=== PATIENT | male | born 1935 | race Caucasian/White ===

== ENCOUNTER 2017-06-28 22:21 | Inpatient (IN) | payer OTHER ==
[~2017-06-28] VITALS: Ht 170.2 cm; Wt 96.7 kg
--- NOTE | 2017-06-28 22:52 | EKG ---
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
[2017-06-28 22:56] LABS: BASO % 0 % (0-3); EOS % 2 % (0-3); HEMATOCRIT 46.1 % (39.0-53.0); HEMOGLOBIN 15.3 g/dL (13.0-17.5); LYMPH # 3.8 x10^3/uL (1.0-4.8); LYMPH % 39 % (24-48); MEAN CORPUSCULAR HEMOGLOBIN 31 pg (25-35); MEAN CORPUSCULAR HGB CONC 33 g/dL (31-37); MEAN CORPUSCULAR VOLUME 94 fL (79-100); MONO % 11 % (0-9); NEUT % 48 % (31-73); PLATELET COUNT 194 x10^3/uL (140-400); RED BLOOD COUNT 4.89 x10^6/uL (4.30-5.70); RED CELL DISTRIBUTION WIDTH 13.4 % (11.5-14.5); WHITE BLOOD COUNT 9.9 x10^3/uL (4.0-11.0)
--- NOTE | 2017-06-28 22:57 | PHYS DOC ---
Past Medical History Past Medical History: A-Fib, High Cholesterol, Hypertension, Kidney Stone Past Surgical History: Other Additional Past Surgical Histo: R LEG Alcohol Use: None Drug Use: None Adult General Chief Complaint Chief Complaint: CHEST PAIN HPI HPI Patient is a 81 year old male who presents with complaint of chest pain that started approximately 3 hours prior to arrival. Patient states that the symptoms came on while eating. Patient states that the pain is in the middle of his chest and currently rates pain as 7 out of 10. Patient states that does radiate to his left shoulder. Patient denies any recent illness. Patient has history of atrial fibrillation currently on warfarin therapy. Patient has had nausea but denies vomiting. Patient hasn't noticed any shortness of breath but does appear to be visibly labored in his respirations. Patient has not had any recent stress testing or echocardiogram. Review of Systems Review of Systems Constitutional: Denies fever or chills [] Eyes: Denies change in visual acuity, redness, or eye pain [] HENT: Denies nasal congestion or sore throat [] Respiratory: Denies cough or shortness of breath [] Cardiovascular: Chest pain[] GI: Nausea, denies abdominal pain, vomiting, bloody stools or diarrhea [] : Denies dysuria or hematuria [] Musculoskeletal: Denies back pain or joint pain [] Integument: Denies rash or skin lesions [] Neurologic: Denies headache, focal weakness or sensory changes [] All other systems were reviewed and found to be within normal limits, except as documented in this note. Current Medications Current Medications Current Medications Medications (Trade) Dose Ordered Sig/Malaika Start Time Stop Time Status Last Admin Dose Admin Aspirin (Children'S Aspirin) 324 mg 1X ONCE 06/28/17 23:15 06/28/17 23:16 DC 06/28/17 23:07 324 MG Nitroglycerin (Nitrostat) 0.4 mg PRN Q5MIN PRN 06/28/17 23:00 06/29/17 22:59 06/28/17 23:09 0.4 MG Sodium Chloride 1,000 ml @ 75 mls/hr [id number] 06/28/17 23:00 06/29/17 12:19 06/28/17 23:09 75 MLS/HR Allergies Allergies Allergies Coded Allergies Type Severity Reaction Last Updated Verified No Known Drug Allergies 06/28/17 No Physical Exam Physical Exam Constitutional: Alert, afebrile, appears in moderate discomfort. [] HENT: Normocephalic, atraumatic, bilateral external ears normal, oropharynx moist, no oral exudates, nose normal. [] Eyes: PERRLA, EOMI, conjunctiva normal, no discharge. [] Neck: Normal range of motion, no tenderness, supple, no stridor. [] Cardiovascular: Normal rate, irregular rhythm, no murmur [] Lungs & Thorax: Bilateral breath sounds clear to auscultation [] Abdomen: Bowel sounds normal, soft, no tenderness, no masses, no pulsatile masses. [] Skin: Warm, dry, no erythema, no rash. [] Back: No tenderness, no CVA tenderness. [] Extremities: No tenderness, no cyanosis, no clubbing, ROM intact, trace pedal edema. [] Neurologic: Alert and oriented X 3, normal motor function, normal sensory function, no focal deficits noted. [] Current Patient Data Vital Signs Vital Signs Date Time Temp Pulse Resp B/P (MAP) Pulse Ox O2 Delivery O2 Flow Rate FiO2 06/28/17 23:09 75 131/69 06/28/17 22:23 98.0 22 96 Room Air 98.0 Lab Values Laboratory Tests Test 06/28/17 22:35 White Blood Count 9.9 x10^3/uL (4.0-11.0) Red Blood Count 4.89 x10^6/uL (4.30-5.70) Hemoglobin 15.3 g/dL (13.0-17.5) Hematocrit 46.1 % (39.0-53.0) Mean Corpuscular Volume 94 fL (79-100) Mean Corpuscular Hemoglobin 31 pg (25-35) Mean Corpuscular Hemoglobin Concent 33 g/dL (31-37) Red Cell Distribution Width 13.4 % (11.5-14.5) Platelet Count 194 x10^3/uL (140-400) Neutrophils (%) (Auto) 48 % (31-73) Lymphocytes (%) (Auto) 39 % (24-48) Monocytes (%) (Auto) 11 % (0-9) H Eosinophils (%) (Auto) 2 % (0-3) Basophils (%) (Auto) 0 % (0-3) Neutrophils # (Auto) 4.7 x10^3uL (1.8-7.7) Lymphocytes # (Auto) 3.8 x10^3/uL (1.0-4.8) Monocytes # (Auto) 1.1 x10^3/uL (0.0-1.1) Eosinophils # (Auto) 0.2 x10^3/uL (0.0-0.7) Basophils # (Auto) 0.0 x10^3/uL (0.0-0.2) Prothrombin Time 28.7 SEC (11.7-14.0) H Prothrombin Time INR 2.9 (0.8-1.1) H Sodium Level 143 mmol/L (136-145) Potassium Level 3.7 mmol/L (3.5-5.1) Chloride Level 106 mmol/L (98-107) Carbon Dioxide Level 27 mmol/L (21-32) Anion Gap 10 (6-14) Blood Urea Nitrogen 17 mg/dL (8-26) Creatinine 1.1 mg/dL (0.7-1.3) Estimated GFR (Cockcroft-Gault) 64.1 BUN/Creatinine Ratio 15 (6-20) Glucose Level 150 mg/dL (70-99) H Calcium Level 8.4 mg/dL (8.5-10.1) L Magnesium Level 2.2 mg/dL (1.8-2.4) Total Bilirubin 1.3 mg/dL (0.2-1.0) H Aspartate Amino Transferase (AST) 44 U/L (15-37) H Alanine Aminotransferase (ALT) 35 U/L (16-63) Alkaline Phosphatase 66 U/L (46-116) Troponin I Quantitative < 0.017 ng/mL (0.000-0.055) Total Protein 7.0 g/dL (6.4-8.2) Albumin 3.8 g/dL (3.4-5.0) Albumin/Globulin Ratio 1.2 (1.0-1.7) Lipase 330 U/L (73-393) Laboratory Tests 06/28/17 22:35 Laboratory Tests 06/28/17 22:35 EKG EKG Interpreted by me: Heart rate 94, atrial fibrillation, leftward axis, no acute ST/T-wave abnormalities present[] Radiology/Procedures Radiology/Procedures One view AP chest x-ray interpreted by me: No infiltrates, no effusions, cardiomegaly present[] Course & Med Decision Making Course & Med Decision Making Pertinent Labs and Imaging studies reviewed. (See chart for details) The patient's HEART score is 4. Initial troponin negative. Due to patient being moderate risk for acute cardiac event, the patient will be admitted the hospital for rule out of myocardial ischemia. Patient admitted to Dr. Hernandez. As patient was noted to have mild abnormalities in LFTs, and abdominal ultrasound will be ordered for the morning for further evaluation. Dragon Disclaimer Dragon Disclaimer This electronic medical record was generated, in whole or in part, using a voice recognition dictation system. Departure Departure Impression: Primary Impression: Chest pain Additional Impression: Atrial fibrillation Disposition: ADMITTED INPATIENT Admitting Physician: Raffy Hernandez Condition: GUARDED Referrals: BETHANY WALL (PCP) Problem Qualifiers Primary Impression: Chest pain Chest pain type: unspecified Qualified Codes: R07.9 - Chest pain, unspecified Additional Impression: Atrial fibrillation Atrial fibrillation type: chronic Qualified Codes: I48.2 - Chronic atrial fibrillation KOKO FRANK MD Jun 28, 2017 22:57
[2017-06-28] MEDS ORDERED: IV NORMAL SALINE 1000ML BAG 1,000 ML IV SCH ×2 (23:00→23:45)
[2017-06-28 23:05] LABS: INR 2.9 (0.8-1.1); PROTHROMBIN TIME PATIENT 28.7 SEC (11.7-14.0)
[2017-06-28] MEDS: NITROGLYCERIN SUBLINGUAL 0.4 MG BOTTLE OF 25. SL PRN (23:09)
[2017-06-28] MEDS ORDERED: ASPIRIN CHEWABLE 81 MG TABLET. PO ONE (23:15)
[2017-06-28 23:16] LABS: CALCIUM 8.4 mg/dL (8.5-10.1); CREATININE 1.1 mg/dL (0.7-1.3); GFR 64.1; POTASSIUM 3.7 mmol/L (3.5-5.1)
[2017-06-28 23:20] LABS: ALBUMIN 3.8 g/dL (3.4-5.0); ALBUMIN/GLOBULIN RATIO 1.2 (1.0-1.7); MAGNESIUM 2.2 mg/dL (1.8-2.4); TOTAL BILIRUBIN 1.3 mg/dL (0.2-1.0)
[2017-06-28 23:23] LABS: CKMB MASS 5.3 ng/mL (0.0-3.6)
[2017-06-28 23:29] LABS: BILIRUBIN,URINE NEGATIVE (NEG); GLUCOSE,URINE NEGATIVE (NEG); NITRITE,URINE NEGATIVE (NEG); PH,URINE 5.5; PROTEIN,URINE NEGATIVE (NEG-TRACE)
[2017-06-28 23:33] LABS: BACTERIA,URINE 0 /HPF (0-FEW); RBC,URINE 0 /HPF (0-2); SQUAMOUS EPITHELIAL CELL,UR OCC /LPF; WBC,URINE OCC /HPF (0-4)
[2017-06-28] MEDS ORDERED: ACETAMINOPHEN 325 MG TABLET. PO PRN (23:45)
[2017-06-28] MEDS ORDERED: ONDANSETRON PF 4 MG/2 ML VIAL. IV PRN (23:45)
[2017-06-28] MEDS ORDERED: fentaNYL PF VIAL 100 MCG/2 ML VIAL IV PRN (23:45)
[2017-06-29] VITALS (7 sets, daily range): BP systolic 101–114; BP diastolic 58–69
[2017-06-29] MEDS ORDERED: METO-239 PO (03:44)
[2017-06-29] MEDS ORDERED: IBUP-1060 PO (03:44)
[2017-06-29] MEDS ORDERED: LOVA40TA2 PO (03:44)
[2017-06-29] MEDS ORDERED: WARF5TAB7 PO (03:44)
[2017-06-29] MEDS: NITROGLYCERIN SUBLINGUAL 0.4 MG BOTTLE OF 25. SL PRN (04:11)
[2017-06-29 05:28] LABS: BASO % 0 % (0-3); EOS % 1 % (0-3); HEMATOCRIT 42.6 % (39.0-53.0); HEMOGLOBIN 14.1 g/dL (13.0-17.5); LYMPH # 2.6 x10^3/uL (1.0-4.8); LYMPH % 23 % (24-48); MEAN CORPUSCULAR HEMOGLOBIN 31 pg (25-35); MEAN CORPUSCULAR HGB CONC 33 g/dL (31-37); MEAN CORPUSCULAR VOLUME 95 fL (79-100); MONO % 12 % (0-9); NEUT % 63 % (31-73); PLATELET COUNT 177 x10^3/uL (140-400); RED BLOOD COUNT 4.51 x10^6/uL (4.30-5.70); RED CELL DISTRIBUTION WIDTH 13.4 % (11.5-14.5)
[2017-06-29 05:39] LABS: CALCIUM 7.8 mg/dL (8.5-10.1); CREATININE 0.9 mg/dL (0.7-1.3); GFR 80.8; POTASSIUM 3.8 mmol/L (3.5-5.1)
--- NOTE | 2017-06-29 07:54 | RAD ---
EXAM: CHEST 1 VIEW History: Chest pain COMPARISON: None available. TECHNIQUE: Single portable radiograph of the chest FINDINGS: The cardiac silhouette is unremarkable. The lungs are clear bilaterally. The costophrenic sulci are clear and well demarcated. IMPRESSION: No radiographic evidence of an acute cardiopulmonary process.
--- NOTE | 2017-06-29 10:07 | RAD ---
Examination: Ultrasound abdomen limited History: History of elevated bilirubin, abdominal pain Comparison: None available Findings: The visualized pancreas grossly appears unremarkable. The gallbladder wall thickness measures 2.2 mm. No evidence of gallstones identified. The common bile duct measures 3.2 mm in diameter. Small calcifications identified in the right lobe of the liver likely granulomas. Probable minimal increased echogenicity identified in the liver. The right kidney measures 11.7 cm in length. 1 cm cystic structure identified in the right kidney likely a cyst. Impression: 1. No evidence of gallstones. 2. Probable minimal increased echogenicity identified in the liver could be hepatic steatosis.
--- NOTE | 2017-06-29 12:23 | PDOC2 ---
CONSULT Date of Consult Date of Consult DATE: 06/29/17 TIME: 12:23 Reason for Consult Reason for Consult: chest pain Referring Physician Referring Physician: Dr. Carroll Identification/Chief Complaint Chief Complaint Chest pain Problems: Source Source: Chart review, Patient History of Present Illness Reason for Visit: 81-year-old male with history of permanent atrial fibrillation on long-term anticoagulation who usually follows up with Dr. Obrien at [facility] presented with left-sided chest pain that he described as pressure-like sensation radiating to left arm and shoulder, A/10 severity. He denied any diaphoresis, shortness of breath, palpitations or syncope. Past Medical History Past Medical History Permanent atrial fibrillation Hypertension Hyperlipidemia Family History Family History Positive for coronary artery disease Social History No ALCOHOL: none Drugs: None Current Problem List Problem List Problems Medical Problems: (1) Atrial fibrillation Status: Acute (2) Chest pain Status: Acute Current Medications Current Medications Current Medications Aspirin (Children'S Aspirin) 324 mg 1X ONCE PO Last administered on 23:07; Start 06/28/17 at 23:15; Stop 06/28/17 at 23:16; Status DC Nitroglycerin (Nitrostat) 0.4 mg PRN Q5MIN PRN SL CP RATING > 1/10 Last administered on 06/29/17 04:11; Start 06/28/17 at 23:00; Stop 06/29/17 at 22 :59 Sodium Chloride 1,000 ml @ 75 mls/hr [id number] IV Last administered on 23:09; Start 06/28/17 at 23:00; Stop 06/29/17 at 12:19; Status DC Ondansetron HCl (Zofran) 4 mg PRN Q8HRS PRN IV NAUSEA/VOMITING; Start at 23:45; Stop 06/29/17 at 23:44 Fentanyl Citrate (Fentanyl 2ml Vial) 50 mcg PRN Q2HR PRN IV SEVERE PAIN; Start 06/28/17 at 23:45; Stop 06/29/17 at 23:44 Sodium Chloride 1,000 ml @ 75 mls/hr [id number] IV ; Start 06/28/17 at 23:45; Stop 06/29/17 at 23:44 Acetaminophen (Tylenol) 650 mg PRN Q4HRS PRN PO FEVER; Start 06/28/17 at 23:45 ; Stop 06/29/17 at 23:44 Active Scripts Active Reported Ibuprofen 800 Mg Tablet 800 Mg PO PRN Q6HRS PRN Metoprolol Succinate ( Xl ) (Metoprolol Succinate) 25 Mg Tab.er.24h 2 Tab PO DAILY Lovastatin 40 Mg Tablet 1 Tab PO DAILY Warfarin Sodium 5 Mg Tablet 1 Tab PO DAILY Allergies Allergies: Coded Allergies: No Known Drug Allergies (Unverified , 06/28/17) ROS PSYCHOLOGICAL ROS: No: Hallucinations Eyes: No Loss of vision HEENT: No: Epistaxis Respiratory: No: Hemoptysis, Shortness of breath Cardiovascular: yes Chest Pain Gastrointestinal: No Vomiting, No Diarrhea Genitourinary: No Hematuria Neurological: No Memory Loss, No Seizures Skin: No Rash Physical Exam General: Alert, Oriented X3 HEENT: Atraumatic, PERRLA Lungs: Clear to auscultation Heart: Other (heart rate is irregular) Abdomen: Soft, No tenderness Extremities: No edema Psych/Mental Status: Mood NL Vitals VITALS Vital Signs Date Time Temp Pulse Resp B/P (MAP) Pulse Ox O2 Delivery O2 Flow Rate FiO2 06/29/17 11:00 97.7 62 18 114/63 (80) 98 Nasal Cannula 1.0 97.7 Labs Labs Laboratory Tests Test 06/28/17 22:35 06/28/17 23:22 06/29/17 02:00 06/29/17 03:30 White Blood Count 9.9 x10^3/uL (4.0-11.0) 11.0 x10^3/uL (4.0-11.0) Red Blood Count 4.89 x10^6/uL (4.30-5.70) 4.51 x10^6/uL (4.30-5.70) Hemoglobin 15.3 g/dL (13.0-17.5) 14.1 g/dL (13.0-17.5) Hematocrit 46.1 % (39.0-53.0) 42.6 % (39.0-53.0) Mean Corpuscular Volume 94 fL (79-100) 95 fL (79-100) Mean Corpuscular Hemoglobin 31 pg (25-35) 31 pg (25-35) Mean Corpuscular Hemoglobin Concent 33 g/dL (31-37) 33 g/dL (31-37) Red Cell Distribution Width 13.4 % (11.5-14.5) 13.4 % (11.5-14.5) Platelet Count 194 x10^3/uL (140-400) 177 x10^3/uL (140-400) Neutrophils (%) (Auto) 48 % (31-73) 63 % (31-73) Lymphocytes (%) (Auto) 39 % (24-48) 23 % (24-48) Monocytes (%) (Auto) 11 % (0-9) 12 % (0-9) Eosinophils (%) (Auto) 2 % (0-3) 1 % (0-3) Basophils (%) (Auto) 0 % (0-3) 0 % (0-3) Neutrophils # (Auto) 4.7 x10^3uL (1.8-7.7) 7.0 x10^3uL (1.8-7.7) Lymphocytes # (Auto) 3.8 x10^3/uL (1.0-4.8) 2.6 x10^3/uL (1.0-4.8) Monocytes # (Auto) 1.1 x10^3/uL (0.0-1.1) 1.4 x10^3/uL (0.0-1.1) Eosinophils # (Auto) 0.2 x10^3/uL (0.0-0.7) 0.1 x10^3/uL (0.0-0.7) Basophils # (Auto) 0.0 x10^3/uL (0.0-0.2) 0.0 x10^3/uL (0.0-0.2) Prothrombin Time 28.7 SEC (11.7-14.0) Prothromb Time International Ratio 2.9 (0.8-1.1) Sodium Level 143 mmol/L (136-145) 143 mmol/L (136-145) Potassium Level 3.7 mmol/L (3.5-5.1) 3.8 mmol/L (3.5-5.1) Chloride Level 106 mmol/L (98-107) 107 mmol/L (98-107) Carbon Dioxide Level 27 mmol/L (21-32) 24 mmol/L (21-32) Anion Gap 10 (6-14) 12 (6-14) Blood Urea Nitrogen 17 mg/dL (8-26) 16 mg/dL (8-26) Creatinine 1.1 mg/dL (0.7-1.3) 0.9 mg/dL (0.7-1.3) Estimated GFR (Cockcroft-Gault) 64.1 80.8 BUN/Creatinine Ratio 15 (6-20) Glucose Level 150 mg/dL (70-99) 124 mg/dL (70-99) Calcium Level 8.4 mg/dL (8.5-10.1) 7.8 mg/dL (8.5-10.1) Magnesium Level 2.2 mg/dL (1.8-2.4) Total Bilirubin 1.3 mg/dL (0.2-1.0) Aspartate Amino Transf (AST/SGOT) 44 U/L (15-37) Alanine Aminotransferase (ALT/SGPT) 35 U/L (16-63) Alkaline Phosphatase 66 U/L (46-116) Creatine Kinase 566 U/L (39-308) Creatine Kinase MB (Mass) 5.3 ng/mL (0.0-3.6) Creatine Kinase MB Relative Index 0.9 % (0-4) Troponin I Quantitative < 0.017 ng/mL (0.000-0.055) < 0.017 ng/mL (0.000-0.055) MF-Xyc-V-Type Natriuretic Peptide 747 pg/mL (0-449) Total Protein 7.0 g/dL (6.4-8.2) Albumin 3.8 g/dL (3.4-5.0) Albumin/Globulin Ratio 1.2 (1.0-1.7) Lipase 330 U/L (73-393) Urine Collection Type Unknown Urine Color Yellow Urine Clarity Cloudy Urine pH 5.5 Urine Specific [place] 1.025 Urine Protein Negative mg/dL (NEG-TRACE) Urine Glucose (UA) Negative mg/dL (NEG) Urine Ketones (Stick) Negative mg/dL (NEG) Urine Blood Negative (NEG) Urine Nitrite Negative (NEG) Urine Bilirubin Negative (NEG) Urine Urobilinogen Dipstick 1.0 mg/dL (0.2 mg/dL) Urine Leukocyte Esterase Negative (NEG) Urine RBC 0 /HPF (0-2) Urine WBC Occ /HPF (0-4) Urine Squamous Epithelial Cells Occ /LPF Urine Bacteria 0 /HPF (0-FEW) Urine Mucus Mod /LPF Test 06/29/17 05:00 Troponin I Quantitative 0.017 ng/mL (0.000-0.055) Laboratory Tests Test 06/28/17 22:35 06/28/17 23:22 06/29/17 02:00 06/29/17 03:30 White Blood Count 9.9 x10^3/uL (4.0-11.0) 11.0 x10^3/uL (4.0-11.0) Red Blood Count 4.89 x10^6/uL (4.30-5.70) 4.51 x10^6/uL (4.30-5.70) Hemoglobin 15.3 g/dL (13.0-17.5) 14.1 g/dL (13.0-17.5) Hematocrit 46.1 % (39.0-53.0) 42.6 % (39.0-53.0) Mean Corpuscular Volume 94 fL (79-100) 95 fL (79-100) Mean Corpuscular Hemoglobin 31 pg (25-35) 31 pg (25-35) Mean Corpuscular Hemoglobin Concent 33 g/dL (31-37) 33 g/dL (31-37) Red Cell Distribution Width 13.4 % (11.5-14.5) 13.4 % (11.5-14.5) Platelet Count 194 x10^3/uL (140-400) 177 x10^3/uL (140-400) Neutrophils (%) (Auto) 48 % (31-73) 63 % (31-73) Lymphocytes (%) (Auto) 39 % (24-48) 23 % (24-48) Monocytes (%) (Auto) 11 % (0-9) 12 % (0-9) Eosinophils (%) (Auto) 2 % (0-3) 1 % (0-3) Basophils (%) (Auto) 0 % (0-3) 0 % (0-3) Neutrophils # (Auto) 4.7 x10^3uL (1.8-7.7) 7.0 x10^3uL (1.8-7.7) Lymphocytes # (Auto) 3.8 x10^3/uL (1.0-4.8) 2.6 x10^3/uL (1.0-4.8) Monocytes # (Auto) 1.1 x10^3/uL (0.0-1.1) 1.4 x10^3/uL (0.0-1.1) Eosinophils # (Auto) 0.2 x10^3/uL (0.0-0.7) 0.1 x10^3/uL (0.0-0.7) Basophils # (Auto) 0.0 x10^3/uL (0.0-0.2) 0.0 x10^3/uL (0.0-0.2) Prothrombin Time 28.7 SEC (11.7-14.0) Prothromb Time International Ratio 2.9 (0.8-1.1) Sodium Level 143 mmol/L (136-145) 143 mmol/L (136-145) Potassium Level 3.7 mmol/L (3.5-5.1) 3.8 mmol/L (3.5-5.1) Chloride Level 106 mmol/L (98-107) 107 mmol/L (98-107) Carbon Dioxide Level 27 mmol/L (21-32) 24 mmol/L (21-32) Anion Gap 10 (6-14) 12 (6-14) Blood Urea Nitrogen 17 mg/dL (8-26) 16 mg/dL (8-26) Creatinine 1.1 mg/dL (0.7-1.3) 0.9 mg/dL (0.7-1.3) Estimated GFR (Cockcroft-Gault) 64.1 80.8 BUN/Creatinine Ratio 15 (6-20) Glucose Level 150 mg/dL (70-99) 124 mg/dL (70-99) Calcium Level 8.4 mg/dL (8.5-10.1) 7.8 mg/dL (8.5-10.1) Magnesium Level 2.2 mg/dL (1.8-2.4) Total Bilirubin 1.3 mg/dL (0.2-1.0) Aspartate Amino Transf (AST/SGOT) 44 U/L (15-37) Alanine Aminotransferase (ALT/SGPT) 35 U/L (16-63) Alkaline Phosphatase 66 U/L (46-116) Creatine Kinase 566 U/L (39-308) Creatine Kinase MB (Mass) 5.3 ng/mL (0.0-3.6) Creatine Kinase MB Relative Index 0.9 % (0-4) Troponin I Quantitative < 0.017 ng/mL (0.000-0.055) < 0.017 ng/mL (0.000-0.055) LR-Xgz-S-Type Natriuretic Peptide 747 pg/mL (0-449) Total Protein 7.0 g/dL (6.4-8.2) Albumin 3.8 g/dL (3.4-5.0) Albumin/Globulin Ratio 1.2 (1.0-1.7) Lipase 330 U/L (73-393) Urine Collection Type Unknown Urine Color Yellow Urine Clarity Cloudy Urine pH 5.5 Urine Specific [place] 1.025 Urine Protein Negative mg/dL (NEG-TRACE) Urine Glucose (UA) Negative mg/dL (NEG) Urine Ketones (Stick) Negative mg/dL (NEG) Urine Blood Negative (NEG) Urine Nitrite Negative (NEG) Urine Bilirubin Negative (NEG) Urine Urobilinogen Dipstick 1.0 mg/dL (0.2 mg/dL) Urine Leukocyte Esterase Negative (NEG) Urine RBC 0 /HPF (0-2) Urine WBC Occ /HPF (0-4) Urine Squamous Epithelial Cells Occ /LPF Urine Bacteria 0 /HPF (0-FEW) Urine Mucus Mod /LPF Test 06/29/17 05:00 Troponin I Quantitative 0.017 ng/mL (0.000-0.055) Assessment/Plan Assessment/Plan 1. Chest pain with typical features concerning for unstable angina. Total CK and CK-MB elevated but troponin level normal. EKG without acute changes. He has multiple cardiac vascular risk factors. We will proceed with cardiac catheterization and possible angioplasty. Risks and benefits explained and he is agreeable. 2. Hypertension: Well-controlled 3. Hyperlipidemia: Continue statin therapy 4. Permanent atrial fibrillation: Rate controlled. Continue current medications including warfarin. We will obtain records of 2-D echo etc. 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 Thank you for your consultation. DAQUAN JAVIER MD Jun 29, 2017 12:23
--- NOTE | 2017-06-29 12:28 | PDOC1 ---
History and Physical Date of Admission Date of Admission DATE: 06/29/17 TIME: 12:28 Source Source: Chart review, Patient History of Present Illness History of Present Illness Mr. Villa, is a 81 year old male admit from ER, acute chest pain, admit late overnight, the pain came on while eating, thought to be indegestion but worsened. . Patient states that the pain is in the middle of his chest was 7/10, now improved. . Patient has history of atrial fibrillation currently on warfarin therapy, and he wanted to be sure he got his dose today. . Patient has had nausea but denies vomiting. Past Medical History Cardiovascular: AFIB, HTN Pulmonary: No pertinent hx GI: No pertinent hx Heme/Onc: No pertinent hx Musculoskeletal: low back pain Rheumatologic: No pertinent hx Past Surgical History Past Surgical History: No pertinent history Family History Family History: Hypertension Social History Smoke: No ALCOHOL: rare Drugs: None Current Problem List Problem List Problems Medical Problems: (1) Atrial fibrillation Status: Acute (2) Chest pain Status: Acute Problems: Current Medications Current Medications Current Medications Aspirin (Children'S Aspirin) 324 mg 1X ONCE PO Last administered on 23:07; Start 06/28/17 at 23:15; Stop 06/28/17 at 23:16; Status DC Nitroglycerin (Nitrostat) 0.4 mg PRN Q5MIN PRN SL CP RATING > 1/10 Last administered on 06/29/17 04:11; Start 06/28/17 at 23:00; Stop 06/29/17 at 22 :59 Sodium Chloride 1,000 ml @ 75 mls/hr [id number] IV Last administered on 23:09; Start 06/28/17 at 23:00; Stop 06/29/17 at 12:19; Status DC Ondansetron HCl (Zofran) 4 mg PRN Q8HRS PRN IV NAUSEA/VOMITING; Start at 23:45; Stop 06/29/17 at 23:44 Fentanyl Citrate (Fentanyl 2ml Vial) 50 mcg PRN Q2HR PRN IV SEVERE PAIN; Start 06/28/17 at 23:45; Stop 06/29/17 at 23:44 Sodium Chloride 1,000 ml @ 75 mls/hr [id number] IV ; Start 06/28/17 at 23:45; Stop 06/29/17 at 23:44 Acetaminophen (Tylenol) 650 mg PRN Q4HRS PRN PO FEVER; Start 06/28/17 at 23:45 ; Stop 06/29/17 at 23:44 Active Scripts Active Reported Ibuprofen 800 Mg Tablet 800 Mg PO PRN Q6HRS PRN Metoprolol Succinate ( Xl ) (Metoprolol Succinate) 25 Mg Tab.er.24h 2 Tab PO DAILY Lovastatin 40 Mg Tablet 1 Tab PO DAILY Warfarin Sodium 5 Mg Tablet 1 Tab PO DAILY Allergies Allergies: Coded Allergies: No Known Drug Allergies (Unverified , 06/28/17) ROS General: No: Chills, Night Sweats, Fatigue, Malaise, Appetite, Other PSYCHOLOGICAL ROS: No: Anxiety, Behavioral Disorder, Concentration difficultie , Decreased libido, Depression, Disorientation, Hallucinations, Hostility, Irritablity, Memory difficulties, Mood Swings, Obsessive thoughts, Physical abuse, Sexual abuse, Sleep disturbances, Suicidal ideation, Other Eyes: No Blurry vision, No Decreased vision, No Double vision, No Dry eyes, No Excessive tearing, No Eye Pain, No Itchy Eyes, No Loss of vision, No Photophobia , No Scotomata, No Uses contacts, No Uses glasses, No Other HEENT: YES: Heacaches, No: Hearing change, Nasal congestion, Nasal discharge, Oral lesions, Sinus pain, Sore Throat, Epistaxis, Sneezing, Snoring, Tinnitus, Vertigo, Vocal changes, Other Respiratory: YES: Shortness of breath, No: Cough, Hemoptysis, Orthopnea, Pleuritic Pain, SOB with excertion, Sputum Changes, Stridor, Tachypnea, Wheezing, Other Cardiovascular: yes Chest Pain, No Palpitations, No Orthopnea, No Paroxysmal Noc. Dyspnea, No Edema, No Lt Headedness, No Other Gastrointestinal: Yes Nausea, No Vomiting, No Abdominal Pain, No Diarrhea, No Constipation, No Melena, No Hematochezia, No Other Genitourinary: No Dysuria, No Frequency, No Incontinence, No Hematuria, No Retention, No Discharge, No Urgency, No Pain, No Flank Pain, No Other, No , No , No , No , No , No , No Musculoskeletal: Yes Joint Pain, Yes Joint Stiffness Neurological: No Behavorial Changes, No Bowel/Bladder ControlChng, No Confusion , No Dizziness, No Gait Disturbance, No Headaches, No Impaired Coord/balance, No Memory Loss, No Numbness/Tingling, No Seizures, No Speech Problems, No Tremors, No Visual Changes, No Weakness, No Other Skin: Yes Dry Skin, No Eczema, No Hair Changes, No Lumps, No Mole Changes, No Mottling, No Nail Changes, No Pruritus, No Rash, No Skin Lesion Changes, No Other, No Acne Physical Exam General: Alert, No acute distress HEENT: PERRLA, EOMI, Mucous membr. moist/pink Lungs: Clear to auscultation Heart: no gallops, no murmurs Abdomen: Normal bowel sounds, Soft (obese) Extremities: No clubbing, No cyanosis, Normal pulses Skin: No rashes, No breakdown, No significant lesion Neuro: Sensation intact, Cranial nerves 3-12 NL Psych/Mental Status: Mental status NL, Mood NL Vitals Vitals Vital Signs Date Time Temp Pulse Resp B/P (MAP) Pulse Ox O2 Delivery O2 Flow Rate FiO2 06/29/17 11:00 97.7 62 18 114/63 (80) 98 Nasal Cannula 1.0 97.7 Labs Labs Laboratory Tests Test 06/28/17 22:35 06/28/17 23:22 06/29/17 02:00 06/29/17 03:30 White Blood Count 9.9 x10^3/uL (4.0-11.0) 11.0 x10^3/uL (4.0-11.0) Red Blood Count 4.89 x10^6/uL (4.30-5.70) 4.51 x10^6/uL (4.30-5.70) Hemoglobin 15.3 g/dL (13.0-17.5) 14.1 g/dL (13.0-17.5) Hematocrit 46.1 % (39.0-53.0) 42.6 % (39.0-53.0) Mean Corpuscular Volume 94 fL (79-100) 95 fL (79-100) Mean Corpuscular Hemoglobin 31 pg (25-35) 31 pg (25-35) Mean Corpuscular Hemoglobin Concent 33 g/dL (31-37) 33 g/dL (31-37) Red Cell Distribution Width 13.4 % (11.5-14.5) 13.4 % (11.5-14.5) Platelet Count 194 x10^3/uL (140-400) 177 x10^3/uL (140-400) Neutrophils (%) (Auto) 48 % (31-73) 63 % (31-73) Lymphocytes (%) (Auto) 39 % (24-48) 23 % (24-48) Monocytes (%) (Auto) 11 % (0-9) 12 % (0-9) Eosinophils (%) (Auto) 2 % (0-3) 1 % (0-3) Basophils (%) (Auto) 0 % (0-3) 0 % (0-3) Neutrophils # (Auto) 4.7 x10^3uL (1.8-7.7) 7.0 x10^3uL (1.8-7.7) Lymphocytes # (Auto) 3.8 x10^3/uL (1.0-4.8) 2.6 x10^3/uL (1.0-4.8) Monocytes # (Auto) 1.1 x10^3/uL (0.0-1.1) 1.4 x10^3/uL (0.0-1.1) Eosinophils # (Auto) 0.2 x10^3/uL (0.0-0.7) 0.1 x10^3/uL (0.0-0.7) Basophils # (Auto) 0.0 x10^3/uL (0.0-0.2) 0.0 x10^3/uL (0.0-0.2) Prothrombin Time 28.7 SEC (11.7-14.0) Prothromb Time International Ratio 2.9 (0.8-1.1) Sodium Level 143 mmol/L (136-145) 143 mmol/L (136-145) Potassium Level 3.7 mmol/L (3.5-5.1) 3.8 mmol/L (3.5-5.1) Chloride Level 106 mmol/L (98-107) 107 mmol/L (98-107) Carbon Dioxide Level 27 mmol/L (21-32) 24 mmol/L (21-32) Anion Gap 10 (6-14) 12 (6-14) Blood Urea Nitrogen 17 mg/dL (8-26) 16 mg/dL (8-26) Creatinine 1.1 mg/dL (0.7-1.3) 0.9 mg/dL (0.7-1.3) Estimated GFR (Cockcroft-Gault) 64.1 80.8 BUN/Creatinine Ratio 15 (6-20) Glucose Level 150 mg/dL (70-99) 124 mg/dL (70-99) Calcium Level 8.4 mg/dL (8.5-10.1) 7.8 mg/dL (8.5-10.1) Magnesium Level 2.2 mg/dL (1.8-2.4) Total Bilirubin 1.3 mg/dL (0.2-1.0) Aspartate Amino Transf (AST/SGOT) 44 U/L (15-37) Alanine Aminotransferase (ALT/SGPT) 35 U/L (16-63) Alkaline Phosphatase 66 U/L (46-116) Creatine Kinase 566 U/L (39-308) Creatine Kinase MB (Mass) 5.3 ng/mL (0.0-3.6) Creatine Kinase MB Relative Index 0.9 % (0-4) Troponin I Quantitative < 0.017 ng/mL (0.000-0.055) < 0.017 ng/mL (0.000-0.055) ZM-Joe-O-Type Natriuretic Peptide 747 pg/mL (0-449) Total Protein 7.0 g/dL (6.4-8.2) Albumin 3.8 g/dL (3.4-5.0) Albumin/Globulin Ratio 1.2 (1.0-1.7) Lipase 330 U/L (73-393) Urine Collection Type Unknown Urine Color Yellow Urine Clarity Cloudy Urine pH 5.5 Urine Specific [place] 1.025 Urine Protein Negative mg/dL (NEG-TRACE) Urine Glucose (UA) Negative mg/dL (NEG) Urine Ketones (Stick) Negative mg/dL (NEG) Urine Blood Negative (NEG) Urine Nitrite Negative (NEG) Urine Bilirubin Negative (NEG) Urine Urobilinogen Dipstick 1.0 mg/dL (0.2 mg/dL) Urine Leukocyte Esterase Negative (NEG) Urine RBC 0 /HPF (0-2) Urine WBC Occ /HPF (0-4) Urine Squamous Epithelial Cells Occ /LPF Urine Bacteria 0 /HPF (0-FEW) Urine Mucus Mod /LPF Test 06/29/17 05:00 Troponin I Quantitative 0.017 ng/mL (0.000-0.055) Laboratory Tests Test 06/28/17 22:35 06/28/17 23:22 06/29/17 02:00 06/29/17 03:30 White Blood Count 9.9 x10^3/uL (4.0-11.0) 11.0 x10^3/uL (4.0-11.0) Red Blood Count 4.89 x10^6/uL (4.30-5.70) 4.51 x10^6/uL (4.30-5.70) Hemoglobin 15.3 g/dL (13.0-17.5) 14.1 g/dL (13.0-17.5) Hematocrit 46.1 % (39.0-53.0) 42.6 % (39.0-53.0) Mean Corpuscular Volume 94 fL (79-100) 95 fL (79-100) Mean Corpuscular Hemoglobin 31 pg (25-35) 31 pg (25-35) Mean Corpuscular Hemoglobin Concent 33 g/dL (31-37) 33 g/dL (31-37) Red Cell Distribution Width 13.4 % (11.5-14.5) 13.4 % (11.5-14.5) Platelet Count 194 x10^3/uL (140-400) 177 x10^3/uL (140-400) Neutrophils (%) (Auto) 48 % (31-73) 63 % (31-73) Lymphocytes (%) (Auto) 39 % (24-48) 23 % (24-48) Monocytes (%) (Auto) 11 % (0-9) 12 % (0-9) Eosinophils (%) (Auto) 2 % (0-3) 1 % (0-3) Basophils (%) (Auto) 0 % (0-3) 0 % (0-3) Neutrophils # (Auto) 4.7 x10^3uL (1.8-7.7) 7.0 x10^3uL (1.8-7.7) Lymphocytes # (Auto) 3.8 x10^3/uL (1.0-4.8) 2.6 x10^3/uL (1.0-4.8) Monocytes # (Auto) 1.1 x10^3/uL (0.0-1.1) 1.4 x10^3/uL (0.0-1.1) Eosinophils # (Auto) 0.2 x10^3/uL (0.0-0.7) 0.1 x10^3/uL (0.0-0.7) Basophils # (Auto) 0.0 x10^3/uL (0.0-0.2) 0.0 x10^3/uL (0.0-0.2) Prothrombin Time 28.7 SEC (11.7-14.0) Prothromb Time International Ratio 2.9 (0.8-1.1) Sodium Level 143 mmol/L (136-145) 143 mmol/L (136-145) Potassium Level 3.7 mmol/L (3.5-5.1) 3.8 mmol/L (3.5-5.1) Chloride Level 106 mmol/L (98-107) 107 mmol/L (98-107) Carbon Dioxide Level 27 mmol/L (21-32) 24 mmol/L (21-32) Anion Gap 10 (6-14) 12 (6-14) Blood Urea Nitrogen 17 mg/dL (8-26) 16 mg/dL (8-26) Creatinine 1.1 mg/dL (0.7-1.3) 0.9 mg/dL (0.7-1.3) Estimated GFR (Cockcroft-Gault) 64.1 80.8 BUN/Creatinine Ratio 15 (6-20) Glucose Level 150 mg/dL (70-99) 124 mg/dL (70-99) Calcium Level 8.4 mg/dL (8.5-10.1) 7.8 mg/dL (8.5-10.1) Magnesium Level 2.2 mg/dL (1.8-2.4) Total Bilirubin 1.3 mg/dL (0.2-1.0) Aspartate Amino Transf (AST/SGOT) 44 U/L (15-37) Alanine Aminotransferase (ALT/SGPT) 35 U/L (16-63) Alkaline Phosphatase 66 U/L (46-116) Creatine Kinase 566 U/L (39-308) Creatine Kinase MB (Mass) 5.3 ng/mL (0.0-3.6) Creatine Kinase MB Relative Index 0.9 % (0-4) Troponin I Quantitative < 0.017 ng/mL (0.000-0.055) < 0.017 ng/mL (0.000-0.055) YJ-Jut-Z-Type Natriuretic Peptide 747 pg/mL (0-449) Total Protein 7.0 g/dL (6.4-8.2) Albumin 3.8 g/dL (3.4-5.0) Albumin/Globulin Ratio 1.2 (1.0-1.7) Lipase 330 U/L (73-393) Urine Collection Type Unknown Urine Color Yellow Urine Clarity Cloudy Urine pH 5.5 Urine Specific [place] 1.025 Urine Protein Negative mg/dL (NEG-TRACE) Urine Glucose (UA) Negative mg/dL (NEG) Urine Ketones (Stick) Negative mg/dL (NEG) Urine Blood Negative (NEG) Urine Nitrite Negative (NEG) Urine Bilirubin Negative (NEG) Urine Urobilinogen Dipstick 1.0 mg/dL (0.2 mg/dL) Urine Leukocyte Esterase Negative (NEG) Urine RBC 0 /HPF (0-2) Urine WBC Occ /HPF (0-4) Urine Squamous Epithelial Cells Occ /LPF Urine Bacteria 0 /HPF (0-FEW) Urine Mucus Mod /LPF Test 06/29/17 05:00 Troponin I Quantitative 0.017 ng/mL (0.000-0.055) VTE Prophylaxis Ordered VTE Prophylaxis Devices: Yes VTE Pharmacological Prophylaxi: No Assessment/Plan Assessment/Plan afib, Chest pain, angina r/o ACS admit, CV consult consider stress test or other in AM htn obesity, BMI 33 DIMAS ROWE MD Jun 29, 2017 12:28
[2017-06-29] MEDS: WARFARIN 5 MG TABLET. PO SCH (16:53)
[2017-06-29] MEDS: METOPROLOL SUCC 24HR ER 25 MG TAB.ER.24H. PO SCH (16:54)
[2017-06-29] MEDS: ATORVASTATIN CALCIUM 10 MG TABLET. PO SCH (20:34)
[2017-06-30 03:45] VITALS: BP 123/69
[2017-06-30 04:38] LABS: BASO % 1 % (0-3); EOS % 3 % (0-3); HEMATOCRIT 41.9 % (39.0-53.0); HEMOGLOBIN 14.2 g/dL (13.0-17.5); LYMPH # 2.6 x10^3/uL (1.0-4.8); LYMPH % 40 % (24-48); MEAN CORPUSCULAR HEMOGLOBIN 32 pg (25-35); MEAN CORPUSCULAR HGB CONC 34 g/dL (31-37); MEAN CORPUSCULAR VOLUME 94 fL (79-100); MONO % 13 % (0-9); NEUT % 44 % (31-73); PLATELET COUNT 155 x10^3/uL (140-400); RED BLOOD COUNT 4.44 x10^6/uL (4.30-5.70); RED CELL DISTRIBUTION WIDTH 13.7 % (11.5-14.5); WHITE BLOOD COUNT 6.5 x10^3/uL (4.0-11.0)
[2017-06-30 04:50] LABS: INR 2.8 (0.8-1.1); PROTHROMBIN TIME PATIENT 27.6 SEC (11.7-14.0)
[2017-06-30 05:20] LABS: ALBUMIN 2.9 g/dL (3.4-5.0); ALBUMIN/GLOBULIN RATIO 0.9 (1.0-1.7); CALCIUM 7.7 mg/dL (8.5-10.1); CREATININE 0.9 mg/dL (0.7-1.3); GFR 80.8; POTASSIUM 3.6 mmol/L (3.5-5.1); TOTAL BILIRUBIN 1.9 mg/dL (0.2-1.0); TOTAL PROTEIN 6.3 g/dL (6.4-8.2)
[2017-06-30 07:30] VITALS: BP 126/66
[2017-06-30] MEDS: METOPROLOL SUCC 24HR ER 25 MG TAB.ER.24H. PO SCH (08:04)
[2017-06-30 10:48] VITALS: BP 109/66
--- NOTE | 2017-06-30 13:58 | PDOC ---
PROGRESS NOTES Chief Complaint Chief Complaint Chest pain ASSESSMENT AND PLAN: 1. Chest pain: resolved. cath planned today 2. Afib: rate controlled. continue home meds 3. HTN: well controlled 4. OAC: on warferin; monitor INR 5. Obesity, BMI 33 History of Present Illness History of Present Illness no current CP, SOB or other c/o Vitals Vitals Vital Signs Date Time Temp Pulse Resp B/P (MAP) Pulse Ox O2 Delivery O2 Flow Rate FiO2 06/30/17 10:48 97.3 83 18 109/66 (80) 95 Room Air 97.3 06/30/17 08:00 1.0 Physical Exam General: Alert, No acute distress Heart: Other (heart rate is irregular) Lungs: Clear Abdomen: Normal bowel sounds, Soft (obese) Extremities: No clubbing Skin: No rashes, No breakdown, No significant lesion Labs LABS Laboratory Tests Test 06/30/17 03:15 White Blood Count 6.5 x10^3/uL (4.0-11.0) Red Blood Count 4.44 x10^6/uL (4.30-5.70) Hemoglobin 14.2 g/dL (13.0-17.5) Hematocrit 41.9 % (39.0-53.0) Mean Corpuscular Volume 94 fL (79-100) Mean Corpuscular Hemoglobin 32 pg (25-35) Mean Corpuscular Hemoglobin Concent 34 g/dL (31-37) Red Cell Distribution Width 13.7 % (11.5-14.5) Platelet Count 155 x10^3/uL (140-400) Neutrophils (%) (Auto) 44 % (31-73) Lymphocytes (%) (Auto) 40 % (24-48) Monocytes (%) (Auto) 13 % (0-9) Eosinophils (%) (Auto) 3 % (0-3) Basophils (%) (Auto) 1 % (0-3) Neutrophils # (Auto) 2.9 x10^3uL (1.8-7.7) Lymphocytes # (Auto) 2.6 x10^3/uL (1.0-4.8) Monocytes # (Auto) 0.8 x10^3/uL (0.0-1.1) Eosinophils # (Auto) 0.2 x10^3/uL (0.0-0.7) Basophils # (Auto) 0.0 x10^3/uL (0.0-0.2) Prothrombin Time 27.6 SEC (11.7-14.0) Prothromb Time International Ratio 2.8 (0.8-1.1) Sodium Level 141 mmol/L (136-145) Potassium Level 3.6 mmol/L (3.5-5.1) Chloride Level 107 mmol/L (98-107) Carbon Dioxide Level 25 mmol/L (21-32) Anion Gap 9 (6-14) Blood Urea Nitrogen 13 mg/dL (8-26) Creatinine 0.9 mg/dL (0.7-1.3) Estimated GFR (Cockcroft-Gault) 80.8 BUN/Creatinine Ratio 14 (6-20) Glucose Level 82 mg/dL (70-99) Calcium Level 7.7 mg/dL (8.5-10.1) Total Bilirubin 1.9 mg/dL (0.2-1.0) Aspartate Amino Transf (AST/SGOT) 35 U/L (15-37) Alanine Aminotransferase (ALT/SGPT) 25 U/L (16-63) Alkaline Phosphatase 49 U/L (46-116) Total Protein 6.3 g/dL (6.4-8.2) Albumin 2.9 g/dL (3.4-5.0) Albumin/Globulin Ratio 0.9 (1.0-1.7) CANDI FISH MD Jun 30, 2017 13:58
[2017-06-30] MEDS ORDERED: IOHEXOL 300 MG/ML 100ML VIAL. ONE (15:11)
[2017-06-30] MEDS ORDERED: LIDOCAINE 2% 20 ML VIAL. ONE (15:11)
[2017-06-30] MEDS ORDERED: VERAPAMIL 5 MG/2 ML VIAL. ONE (15:31)
[2017-06-30] MEDS ORDERED: HEPARIN for IV BOLUS 10,000 UNIT/10 ML VIAL. ONE (15:31)
[2017-06-30] MEDS ORDERED: fentaNYL PF VIAL 100 MCG/2 ML VIAL ONE (15:31)
[2017-06-30] MEDS ORDERED: MIDAZOLAM HCL/PF 2 MG/2 ML VIAL. ONE (15:31)
[2017-06-30] MEDS ORDERED: NITROGLYCERIN 200 MCG/2 ML SYRINGE FOR CATH/VASC LAB. ONE (15:32)
[2017-06-30 16:00] VITALS: BP 113/85
[2017-06-30] MEDS: WARFARIN 5 MG TABLET. PO SCH (16:00)
[2017-06-30] MEDS ORDERED: LIDOCAINE 2% 20 ML VIAL. IJ ONE (16:15)
[2017-06-30] MEDS ORDERED: MIDAZOLAM HCL/PF 2 MG/2 ML VIAL. IV ONE (16:15)
[2017-06-30] MEDS ORDERED: NITROGLYCERIN 200 MCG/2 ML SYRINGE FOR CATH/VASC LAB. IART ONE (16:15)
[2017-06-30] MEDS ORDERED: IOHEXOL 300 MG/ML 100ML VIAL. IART ONE (16:15)
[2017-06-30] MEDS ORDERED: HEPARIN for IV BOLUS 10,000 UNIT/10 ML VIAL. IART ONE (16:15)
[2017-06-30] MEDS ORDERED: fentaNYL PF VIAL 100 MCG/2 ML VIAL IV ONE (16:15)
[2017-06-30] MEDS ORDERED: VERAPAMIL 5 MG/2 ML VIAL. IART ONE (16:15)
--- NOTE | 2017-06-30 16:26 | CARD ---
MR#: [id number] Date of Study: 06/30/2017 Ordering Physician: DAQUAN FOSTER, Referring Physician: FRANCISCO MCCOY Tech: RT Geoffrey (R) APPROVED REPORT Technologist: RT Geoffrey (R) Procedure(s) performed: Left heart catheterization, selective coronary angiography and left ventricul ography via right transradial approach Sedation Time: 29 Minutes INDICATION The indication(s) include : unstable angina . PROCEDURE NARRATIVE After explaining the risks, benefits and alternative options, informed consent was obtained from wayne ent. Patient was brought to the cardiac [employer] Driver and right wrist was prepped and draped in the usual fashion after confirming a positive modified Samuel's test. Arterial access was obtained in the righ t radial artery and a 6 [place] sheath was inserted. 6 [place] Brendan catheter was used to perform brad ective angiography of the left and right coronary arteries. 6 [place] pigtail catheter was used to pe rform left ventriculography. Patient tolerated the procedure well. Hemostasis was achieved using TR band. There were no immediate complications. The following findings were noted. FINDINGS 1. Hemodynamics: Left ventricular end-diastolic pressure of 8 mmHg. No pullback gradient across the aortic valve. 2. Left ventriculography: Normal left ventricle systolic function with ejection fraction estimated at 60%. No significant mitral regurgitation seen. 3. Coronary angiography: a. The left main coronary artery arose from the left sinus of Valsalva, gave rise to the left anteri or descending and left circumflex arteries and did not show any significant stenosis. b. The left anterior descending artery showed 20% stenosis involving the proximal segment. c. The left circumflex artery did not show any significant stenosis. d. The right coronary artery was a large and dominant vessel arising from the right sinus of Valsalv a that did not show any significant stenosis. Conclusion 1. No significant coronary artery disease 2. Normal left ventricle systolic function with ejection fraction estimated at 60%. Recommendations Cardiac Risk Reduction Program Signed by : Daquan Foster, Electronically Approved : 06/30/2017 16:26:38
--- NOTE | 2017-06-30 16:43 | CARD ---
MR#: [id number] Date of Study: 06/30/2017 Ordering Physician: DAQUAN FOSTER, Referring Physician: Tommy SAUCEDO: Justin Orozco [facility] APPROVED REPORT EXAM: Two-dimensional and M-mode echocardiogram with Doppler and color Doppler. Other Information Quality : GoodHR: 85bpm INDICATION Atrial Fibrillation 2D DIMENSIONS Left Atrium(2D)4.2 (1.6-4.0cm)IVSd0.9 (0.7-1.1cm) Aortic Root(2D)3.6 (2.0-3.7cm)LVDd5.6 (3.9-5.9cm) LVOT Diameter2.3 (1.8-2.4cm)PWd0.9 (0.7-1.1cm) LVDs3.9 (2.5-4.0cm)FS (%) 30.3 % SV86.3 mlLVEF(%)57.0 (>50%) Aortic Valve AoV Peak Antonio.127.4cm/sAoV VTI25.5cm AO Peak GR.6.5mmHgLVOT Peak Antonio.84.3cm/s AO Mean GR.3mmHgAVA (VMAX)2.67cm2 AI P 1/2 [id number] Mitral Valve MV E Gjcenstq436.0cm/sMV E Peak Gr.52mmHg MV DECEL [id number] A Bctjtjho84.7cm/s E/A Ratio4.8 Pulmonary Valve PV Peak Nvunfxet71.8cm/s Tricuspid Valve TR P. Wxxjuhyj188ve/sRAP [id number] TR Peak Gr.73gkInUYJP28dfVs LEFT VENTRICLE The Left Ventricle is near the borderline of normal size. There is normal left ventricular wall thick ness. The left ventricular systolic function is normal. The ejection fraction is estimated at 55%. Th ere is normal LV segmental wall motion. cannot be assessed due to underlying atrial fibrillation RIGHT VENTRICLE The right ventricle is normal size. The right ventricular systolic function is normal. ATRIA The left atrium is mildly dilated. The right atrium is moderately dilated. The interatrial septum is intact with no evidence for an atrial septal defect or patent foramen ovale as noted on 2-D or Dopple r imaging. AORTIC VALVE The aortic valve is calcified but opens well. Doppler and Color Flow revealed trace to mild aortic re gurgitation. There is no significant aortic valvular stenosis. There is no aortic valvular vegetation . MITRAL VALVE The mitral valve is thickened but opens well. There is no evidence of mitral valve prolapse. There is no mitral valve stenosis. Doppler and Color-flow revealed mild mitral regurgitation. TRICUSPID VALVE The tricuspid valve is normal in structure and function. Doppler and Color Flow revealed mild to mode rate tricuspid regurgitation. Doppler and Color Flow revealed mild pulmonary hypertension. There is n o tricuspid valve prolapse or vegetation. There is no tricuspid valve stenosis. PULMONIC VALVE The pulmonic valve is mildly thickened. Doppler and Color Flow revealed moderate to severe pulmonic v alvular regurgitation. There is no pulmonic valvular stenosis. GREAT VESSELS The aortic root is normal in size. The IVC is at the upper limit of normal in size and collapses >50% with inspiration. PERICARDIAL EFFUSION There is no pleural effusion. There is no evidence of significant pericardial effusion. Critical Notification Critical Value: No <Conclusion> The left ventricular systolic function is normal. The ejection fraction is estimated at 55%. There is normal LV segmental wall motion. Mild mitral regurgitation. Mild to moderate tricuspid regurgitation. There is no evidence of significant pericardial effusion. Signed by : Daquan Foster, Electronically Approved : 06/30/2017 16:43:03
[2017-06-30] MEDS ORDERED: IV 1/2 NORMAL SALINE 1,000 ML IV SCH (16:45)
--- NOTE | 2017-06-30 16:45 | PDOC ---
MODERATE SEDATION ASSESSMENT RISKS/ALTERNATIVES Risks/Alternatives Risks and alternatives of this type of sedation and procedure discussed with: RISK/ALTERNATIVES: Patient H & P ON CHART H & P H & P on chart and reviewed for co-morbid conditions and appropriate labs. H&P ON CHART: Yes STATUS PREG STATUS ASSESSED: N/A MEDS/ALLERGIES REVIEWED Meds/Allergies Reviewed Medications and Allergies including time and route of recently administered narcotics and sedatives. MEDS/ALLERGIES REVIEWED: Yes ASA RATING ASA RATING: II AIRWAY ASSESSMENT Airway Assessment Airway patency, oral function limitations, presence of caps, crowns, dentures, partials, and ability to extend neck assessed. AIRWAY ASSESSMENT: Yes MALLAMPATI SCORE MALLAMPATI SCORE: II PRE-SEDATION ASSESSMENT PRE-SEDATION ASSESSMENT: Yes DAQUAN JAVIER MD Jun 30, 2017 16:45
[2017-06-30 19:25] VITALS: BP 119/73
[2017-06-30] MEDS: ATORVASTATIN CALCIUM 10 MG TABLET. PO SCH (20:54)
[2017-06-30 22:09] VITALS: BP 153/88
== END 2017-06-30 22:30 | disposition home or self-care (01) | DRG 287 ==
LOC: ER 22:21
PROVIDERS: ADMIT Internal Medicine; ATTEND Internal Medicine
PROC: 4A023N7 Measurement of Cardiac Sampling and Pressure, Left Heart, Percutaneous Approach (ICD-10-PCS; principal; 2017-06-30)
PROC: B2151ZZ Fluoroscopy of Left Heart using Low Osmolar Contrast (ICD-10-PCS; 2017-06-30)
PROC: B2111ZZ Fluoroscopy of Multiple Coronary Arteries using Low Osmolar Contrast (ICD-10-PCS; 2017-06-30)
DX: I20.9 Angina pectoris, unspecified (principal); I48.2 Chronic atrial fibrillation; E66.9 Obesity, unspecified; M54.5 Low back pain; E78.00 Pure hypercholesterolemia, unspecified; Z68.33 Body mass index [BMI] 33.0-33.9, adult; E78.5 Hyperlipidemia, unspecified; I10 Essential (primary) hypertension; Z82.49 Family history of ischemic heart disease and other diseases of the circulatory system; Z87.442 Personal history of urinary calculi; Z79.01 Long term (current) use of anticoagulants
CPT/HCPCS: 36415; 71010; 76705; 80048; 80053; 81001; 82553; 83690; 83735; 83880; 84484; 85025; 85610; 93005; 93306; 93458; 96360; 99152; 99153; C1769; C1892; J1644; J2250; J3010; J3490; J7030; 99285-25; J2001

== ENCOUNTER → 2017-10-07 | Outpatient (CLI) | payer OTHER | END | disposition home or self-care (01) | LOC: KCIC MRI 13:25 | DX: S46.812A Strain of other muscles, fascia and tendons at shoulder and upper arm level, left arm, initial encounter (principal); M75.102 Unspecified rotator cuff tear or rupture of left shoulder, not specified as traumatic; M19.012 Primary osteoarthritis, left shoulder; X58.XXXA Exposure to other specified factors, initial encounter; Y93.89 Activity, other specified; Y92.89 Other specified places as the place of occurrence of the external cause; Y99.8 Other external cause status | CPT/HCPCS: 73221 ==

== ENCOUNTER → 2018-09-02 | Outpatient (CLI) | payer OTHER ==
[~2018-09-02] MED LIST: IBUP-1060 PO; IOHEXOL 300 MG/ML 100ML VIAL. IV ONE; LOVA40TA2 PO; METO-239 PO; WARF-31 PO
[2018-09-02 08:59] LABS: CREATININE 1.1 mg/dL (0.7-1.3); GFR 63.9
--- NOTE | 2018-09-02 11:05 | RAD ---
EXAM: Abdomen and pelvis CT with and without intravenous contrast. HISTORY: Hematuria. TECHNIQUE: Computed tomographic images of the abdomen and pelvis were obtained prior to and following the administration of 75 cc Omnipaque 300 intravenous contrast. Multiplanar reformatting was performed. *One or more of the following individualized dose reduction techniques were utilized for this examination: 1. Automated exposure control. 2. Adjustment of the mA and/or kV according to patient size. 3. Use of iterative reconstruction technique. COMPARISON: None. FINDINGS: Evaluation of the lower thorax demonstrates bilateral mid and lower lung atelectasis. There is no infiltrate or pleural effusion. There is no suspicious pulmonary nodule. There is cardiomegaly. No hepatic lesion is seen. The gallbladder, pancreas, spleen and adrenal glands are unremarkable. There are punctate bilateral renal stones. The largest of these are less than 1 mm in size. There is no ureteral stone or obstructive uropathy. There is a 1.2 cm simple appearing cyst within the upper pole of the right kidney. No solid renal lesion is seen. No urothelial lesion is seen. The mid to distal aspect of the right ureter is not well characterized due to the absence of contrast opacification. There is deformation of the bladder base due to an enlarged prostate measuring 7.3 cm in maximum dimension. No intrinsic urothelial lesion is seen. There is slight trabecular thickening likely due to chronic outlet obstruction. The appendix is normal in appearance. There is colonic diverticulosis without diverticulitis. There is no bowel obstruction or abnormal bowel wall thickening. There is no lymphadenopathy. There is aortic and aortic branch vessel atherosclerotic plaque. No aneurysm is seen. There are degenerative changes throughout the thoracolumbar spine. There is multilevel lumbar listhesis and mild lumbar scoliosis. There is slight asymmetric increased fat within the right inguinal canal. IMPRESSION: 1. Punctate nonobstructing bilateral renal stones. There is no evidence of obstructive uropathy or intrinsic urothelial lesion. 2. Prostatomegaly with associated slight urinary bladder wall thickening likely due to chronic outlet obstruction. 3. Small right renal cyst. 4. Colonic diverticulosis. 5. Cardiomegaly. Electronically signed by: Shraddha Cavazos MD (09/02/2018 11:02 AM) [facility]
== END | disposition home or self-care (01) ==
LOC: CT 08:07
PROVIDERS: ATTEND Urology
DX: N20.0 Calculus of kidney (principal); N28.1 Cyst of kidney, acquired; N40.0 Benign prostatic hyperplasia without lower urinary tract symptoms; J98.11 Atelectasis; I51.7 Cardiomegaly; K57.30 Diverticulosis of large intestine without perforation or abscess without bleeding; I70.0 Atherosclerosis of aorta; M48.061 Spinal stenosis, lumbar region without neurogenic claudication
CPT/HCPCS: 36415; 74178; 82565; 84520; Q9967

== ENCOUNTER 2019-02-17 10:19 | Emergency (ER) | payer OTHER ==
[~2019-02-17] VITALS: Ht 170.2 cm; Wt 96.6 kg
[~2019-02-17 10:19] MED LIST changes: -IOHEXOL 300 MG/ML 100ML VIAL. IV ONE
--- NOTE | 2019-02-17 10:57 | PHYS DOC ---
Past Medical History Past Medical History: A-Fib, High Cholesterol, Hypertension, Kidney Stone (CLARISSA OLMEDO APRN) Past Surgical History: Other Additional Past Surgical Histo: R LEG I & D/drain (CLARISSA OLMEDO APRN) Alcohol Use: None Drug Use: None (CLARISSA OLMEDO APRN) Adult General Chief Complaint Chief Complaint: LOWER EXTREMITY SWELLING [facility] HPI Patient is a 83 year old male that presents with left knee pain has been ongoing for week. The patient denies any fever. States that he is been having mild edema to the left knee, and has been having pain. Rates his pain is 2 out of 10 in severity and throbbing sharp. He does feel history of A. fib and is on warfarin for his A. fib. (CLARISSA OLMEDO APRN) Review of Systems Review of Systems Constitutional: Denies fever or chills [] Eyes: Denies change in visual acuity, redness, or eye pain [] HENT: Denies nasal congestion or sore throat [] Respiratory: Denies cough or shortness of breath [] Cardiovascular: No additional information not addressed in HPI [] GI: Denies abdominal pain, nausea, vomiting, bloody stools or diarrhea [] : Denies dysuria or hematuria [] Musculoskeletal: Reports L knee pain, and some ankle swelling. Integument: Denies rash or skin lesions [] Neurologic: Denies headache, focal weakness or sensory changes [] Endocrine: Denies polyuria or polydipsia [] Complete systems were reviewed and found to be within normal limits, except as documented in this note. (CLARISSA OLMEDO APRN) Allergies Allergies Allergies Coded Allergies Type Severity Reaction Last Updated Verified No Known Drug Allergies 06/28/17 No (ANGEL AYOUB MD) Physical Exam Physical Exam Constitutional: Well developed, well nourished, no acute distress, non-toxic nuris earance. [] HENT: Normocephalic, atraumatic, bilateral external ears normal, oropharynx moist, no oral exudates, nose normal. [] Eyes: PERRLA, EOMI, conjunctiva normal, no discharge. [] Neck: Normal range of motion, no tenderness, supple, no stridor. [] Cardiovascular:Heart rate regular rhythm, no murmur [] Lungs & Thorax: Bilateral breath sounds clear to auscultation [] Abdomen: Bowel sounds normal, soft, no tenderness, no masses, no pulsatile masses. [] Skin: Warm, dry, no erythema, no rash. [] Back: No tenderness, no CVA tenderness. [] Extremities: Tenderness to the anterior L knee with erythema (blanchable) and warmth. Has full range of motion in the knee. Also has mild edema in the L ankle. No calf tenderness or erythema. Neurologic: Alert and oriented X 3, normal motor function, normal sensory function, no focal deficits noted. [] Psychologic: Affect normal, judgement normal, mood normal. [] (CLARISSA OLMEDO APRN) Current Patient Data Vital Signs Vital Signs Date Time Temp Pulse Resp B/P (MAP) Pulse Ox O2 Delivery O2 Flow Rate FiO2 02/17/19 10:25 96.6 71 18 121/51 (74) 95 Room Air 96.6 (ANGEL AYOUB MD) Lab Values Laboratory Tests Test 02/17/19 10:55 White Blood Count 6.4 x10^3/uL (4.0-11.0) Red Blood Count 4.66 x10^6/uL (4.30-5.70) Hemoglobin 14.8 g/dL (13.0-17.5) Hematocrit 43.2 % (39.0-53.0) Mean Corpuscular Volume 93 fL (79-100) Mean Corpuscular Hemoglobin 32 pg (25-35) Mean Corpuscular Hemoglobin Concent 34 g/dL (31-37) Red Cell Distribution Width 13.6 % (11.5-14.5) Platelet Count 230 x10^3/uL (140-400) Neutrophils (%) (Auto) 45 % (31-73) Lymphocytes (%) (Auto) 37 % (24-48) Monocytes (%) (Auto) 14 % (0-9) H Eosinophils (%) (Auto) 4 % (0-3) H Basophils (%) (Auto) 1 % (0-3) Neutrophils # (Auto) 2.8 x10^3/uL (1.8-7.7) Lymphocytes # (Auto) 2.3 x10^3/uL (1.0-4.8) Monocytes # (Auto) 0.9 x10^3/uL (0.0-1.1) Eosinophils # (Auto) 0.2 x10^3/uL (0.0-0.7) Basophils # (Auto) 0.0 x10^3/uL (0.0-0.2) Prothrombin Time 28.0 SEC (11.7-14.0) H Prothrombin Time INR 2.6 (0.8-1.1) H Activated Partial Thromboplast Time 50 SEC (24-38) H Sodium Level 141 mmol/L (136-145) Potassium Level 4.2 mmol/L (3.5-5.1) Chloride Level 106 mmol/L (98-107) Carbon Dioxide Level 29 mmol/L (21-32) Anion Gap 6 (6-14) Blood Urea Nitrogen 12 mg/dL (8-26) Creatinine 1.0 mg/dL (0.7-1.3) Estimated GFR (Cockcroft-Gault) 71.2 BUN/Creatinine Ratio 12 (6-20) Glucose Level 85 mg/dL (70-99) Calcium Level 8.7 mg/dL (8.5-10.1) Total Bilirubin 1.2 mg/dL (0.2-1.0) H Aspartate Amino Transferase (AST) 36 U/L (15-37) Alanine Aminotransferase (ALT) 36 U/L (16-63) Alkaline Phosphatase 78 U/L (46-116) Total Protein 7.3 g/dL (6.4-8.2) Albumin 3.2 g/dL (3.4-5.0) L Albumin/Globulin Ratio 0.8 (1.0-1.7) L Laboratory Tests 02/17/19 10:55 Laboratory Tests 02/17/19 10:55 (CLARISSA OLMEDO APRN) EKG EKG [] (CLARISSA OLMEDO APRN) Radiology/Procedures Radiology/Procedures [][facility] [address] [place], [place] [id number] IMAGING REPORT Signed PATIENT: ASIYA ALEXIS ACCOUNT: [id number] : 1935 LOCATION: ER AGE: 83 SEX: M EXAM STATUS: REG ER ORD. PHYSICIAN: CLARISSA OLMEDO APRN REASON: FALL SEVERAL MONTHS AGO, CONTINUED PAIN WITH SWELLING PROCEDURE: KNEE LEFT 3V Three-view left knee study Clinical indications: Fall several months ago. Continued left knee pain with swelling. FINDINGS: No acute fracture or dislocation or lytic process is seen. No significant left knee joint effusion is seen. Minimal degenerative spurring of the medial and lateral tibiofemoral joint compartments and patellofemoral joint compartment is seen. There is prepatellar soft tissue swelling present. IMPRESSION: No acute fracture. Mild prepatellar bursitis. Electronically signed by: Yves Roberts MD (02/17/2019 11:37 AM) [place] [id number] DICTATED and SIGNED BY: YVES ROBERTS MD DATE: 02/17/19 1137 (CLARISSA OLMEDO APRN) Course & Med Decision Making Course & Med Decision Making Pertinent Labs and Imaging studies reviewed. (See chart for details) Will get L knee xray, labs, and place on clindamycin. Labs are unremarkable. Will d/c home. Imaging shows prepateller bursitis. (CLARISSA OLMEDO APRN) Course & Med Decision Making ER PHYSICIAN ATTENDING NOTE: I have personally seen and examined the patient. Patient complains of some pain and swelling and redness on the anterior aspect of his left knee. He is able to fully flex and extend his knee without any significant discomfort. There is no exam evidence of significant joint effusion. There is hyperemia, with blanching, of the soft tissues of the anterior knee, just anterior to the patella. Differential considerations include cellulitis, prepatellar bursitis/septic bursitis. Septic arthritis is not clinically present at this time. I agree with the history, physical exam, and plan, as documented by mid-level provider. (ANGEL AYOUB MD) Dragon Disclaimer Dragon Disclaimer This electronic medical record was generated, in whole or in part, using a voice recognition dictation system. (CLARISSA OLMEDO APRN) Departure Departure Impression: Primary Impression: Cellulitis Additional Impression: Prepatellar bursitis of left knee Disposition: HOME, SELF-CARE Condition: STABLE Referrals: BETHANY WALL (PCP) Patient Instructions: Bursitis, Cellulitis Additional Instructions: Thank you for visiting . We appreciate you trusting us with your care. If any additional problems come up don't hesitate to return to visit us. Please follow up with your primary care provider so they can plan additional care if needed and know about the problem that you had. If symptoms worsen come back to the Emergency Department. Any concerning symptoms that start such as chest pain, shortness of air, weakness or numbness on one side of the body, running high fevers or any other concerning symptoms return to the ER. Please follow up with Dr. Moss. Scripts Clindamycin Hcl (CLINDAMYCIN HCL) 150 Mg Capsule 450 MG PO TID for 7 Days, #63 CAP Prov: CLARISSA OLMEDO APRN 02/17/19 Problem Qualifiers Primary Impression: Cellulitis Site of cellulitis: extremity Site of cellulitis of extremity: lower extremity Laterality: left Qualified Codes: L03.116 - Cellulitis of left lower limb CLARISSA OLMEDO APRN Feb 17, 2019 10:57 ANGEL AYOUB MD Feb 17, 2019 10:59
[2019-02-17 11:19] LABS: BASO % 1 % (0-3); EOS # 0.2 x10^3/uL (0.0-0.7); EOS % 4 % (0-3); HEMATOCRIT 43.2 % (39.0-53.0); HEMOGLOBIN 14.8 g/dL (13.0-17.5); LYMPH # 2.3 x10^3/uL (1.0-4.8); LYMPH % 37 % (24-48); MEAN CORPUSCULAR HEMOGLOBIN 32 pg (25-35); MEAN CORPUSCULAR HGB CONC 34 g/dL (31-37); MEAN CORPUSCULAR VOLUME 93 fL (79-100); MONO # 0.9 x10^3/uL (0.0-1.1); MONO % 14 % (0-9); NEUT # 2.8 x10^3/uL (1.8-7.7); NEUT % 45 % (31-73); PLATELET COUNT 230 x10^3/uL (140-400); RED BLOOD COUNT 4.66 x10^6/uL (4.30-5.70); RED CELL DISTRIBUTION WIDTH 13.6 % (11.5-14.5); WHITE BLOOD COUNT 6.4 x10^3/uL (4.0-11.0)
[2019-02-17 11:30] LABS: CALCIUM 8.7 mg/dL (8.5-10.1); GFR 71.2; POTASSIUM 4.2 mmol/L (3.5-5.1)
[2019-02-17 11:35] LABS: ALBUMIN 3.2 g/dL (3.4-5.0); ALBUMIN/GLOBULIN RATIO 0.8 (1.0-1.7); TOTAL BILIRUBIN 1.2 mg/dL (0.2-1.0); TOTAL PROTEIN 7.3 g/dL (6.4-8.2)
--- NOTE | 2019-02-17 11:39 | RAD ---
Three-view left knee study Clinical indications: Fall several months ago. Continued left knee pain with swelling. FINDINGS: No acute fracture or dislocation or lytic process is seen. No significant left knee joint effusion is seen. Minimal degenerative spurring of the medial and lateral tibiofemoral joint compartments and patellofemoral joint compartment is seen. There is prepatellar soft tissue swelling present. IMPRESSION: No acute fracture. Mild prepatellar bursitis. Electronically signed by: Leonidas Roberts MD (02/17/2019 11:37 AM) [place] [id number]
[2019-02-17] MEDS ORDERED: CLIN150C14 PO (12:04)
[2019-02-17 12:11] VITALS: BP 132/67
== END 2019-02-17 12:21 | disposition home or self-care (01) ==
LOC: ER 10:19
DX: L03.116 Cellulitis of left lower limb (principal); M70.42 Prepatellar bursitis, left knee; I48.91 Unspecified atrial fibrillation; E78.00 Pure hypercholesterolemia, unspecified; I10 Essential (primary) hypertension; Z87.442 Personal history of urinary calculi; Y93.89 Activity, other specified
CPT/HCPCS: 36415; 73562; 80053; 85025; 85610; 85730; 99285

== ENCOUNTER → 2019-04-05 | Outpatient (CLI) | payer OTHER ==
[~2019-04-05] MED LIST changes: +CLIN150C14 PO
--- NOTE | 2019-04-05 09:22 | CARD ---
MR#: [id number] Date of Study: 04/05/2019 Ordering Physician: DAQUAN FOSTER, Referring Physician: DAQUAN FOSTER, Tech: Lynda Spence APPROVED REPORT EXAM: Two-dimensional and M-mode echocardiogram with Doppler and color Doppler. Other Information Quality : AverageHR: 71bpm INDICATION Atrial Fibrillation 2D DIMENSIONS RVDd5.0 (2.9-3.5cm)Left Atrium(2D)3.7 (1.6-4.0cm) IVSd1.2 (0.7-1.1cm)Aortic Root(2D)3.6 (2.0-3.7cm) LVDd4.9 (3.9-5.9cm)LVOT Diameter2.2 (1.8-2.4cm) PWd1.0 (0.7-1.1cm)LVDs3.4 (2.5-4.0cm) FS (%) 30.2 %SV63.9 ml LVEF(%)57.4 (>50%) Aortic Valve AoV Peak Antonio.121.0cm/sAoV VTI22.4cm AO Peak GR.5.9mmHgLVOT Peak Antonio.75.8cm/s LVOT VTI 15.43cmAO Mean GR.3mmHg VIN (VMAX)1.86fs2VPL (VTI)2.64cm2 AI P 1/2 Nbuy997fl Mitral Valve MV E Wdsraqvb43.4cm/s TDI E/Lateral E'5.7E/Medial E'6.9 Pulmonary Valve PV Peak Xoxtqywf50.7cm/sPV Peak Grad.3mmHg Tricuspid Valve TR P. Snnyxqzw957sr/sRAP EZBNBPBJ7zsKd TR Peak Gr.45gtKgUREH54dsLm Pulmonary Vein S1 Umccynez60.4cm/sD2 Ekdmqyii46.8cm/s PVa rasbgcbg158qvuv LEFT VENTRICLE The left ventricle is normal size. There is mild concentric left ventricular hypertrophy. The left ve ntricular systolic function is normal. The Ejection Fraction is 50-55%. There is normal LV segmental wall motion. Diastology indeterminate due to atrial fibrillation. RIGHT VENTRICLE The right ventricle is normal size. There is normal right ventricular wall thickness. The right ventr icular systolic function is normal. ATRIA The left atrium is moderately dilated. The right atrium is mildly dilated. The interatrial septum is intact with no evidence for an atrial septal defect or patent foramen ovale as noted on 2-D or Dopple r imaging. AORTIC VALVE The aortic valve is thickened but opens well. Doppler and Color Flow revealed trace aortic regurgitat ion. There is no significant aortic valvular stenosis. MITRAL VALVE The mitral valve is normal in structure and function. There is no evidence of mitral valve prolapse. There is no mitral valve stenosis. Doppler and Color-flow revealed trace mitral regurgitation. TRICUSPID VALVE The tricuspid valve is normal in structure and function. Doppler and Color Flow revealed trace tricus pid regurgitation with an estimated PAP of 27 mmHg. There is no tricuspid valve stenosis. PULMONIC VALVE The pulmonary valve is normal in structure and function. Doppler and Color Flow revealed trace pulmon ic valvular regurgitation. GREAT VESSELS The aortic root is normal in size. The IVC is normal in size and collapses >50% with inspiration. PERICARDIAL EFFUSION There is no evidence of significant pericardial effusion. Critical Notification Critical Value: No <Conclusion> The left ventricular systolic function is normal. The Ejection Fraction is 50-55%. There is normal LV segmental wall motion. Trace mitral regurgitation. Trace tricuspid regurgitation with an estimated PAP of 27 mmHg. There is no evidence of significant pericardial effusion. Signed by : Daquan Foster, Electronically Approved : 04/05/2019 09:22:07
== END | disposition home or self-care (01) ==
LOC: ECHO 07:58
PROVIDERS: ATTEND Internal Medicine Cardiovascular Disease
DX: I51.7 Cardiomegaly (principal); I48.91 Unspecified atrial fibrillation
CPT/HCPCS: 93306

== ENCOUNTER 2019-05-31 19:48 | Emergency (ER) | payer OTHER ==
[~2019-05-31] VITALS: Ht 167.6 cm; Wt 96.6 kg
[2019-05-31] MEDS ORDERED: FLUORESCEIN OPHTH TEST STRIP. OD STA (20:41)
[2019-05-31] MEDS ORDERED: TETRACAINE 0.5% OPHTH SOLUTION 4ML BOTTLE. OD STA (20:41)
[2019-05-31] MEDS ORDERED: FLUORESCEIN OPHTH TEST STRIP. ONE (20:41)
[2019-05-31] MEDS ORDERED: TETRACAINE 0.5% OPHTH SOLUTION 4ML BOTTLE. ONE (20:41)
--- NOTE | 2019-05-31 21:05 | PHYS DOC ---
Past Medical History Past Medical History: A-Fib, High Cholesterol, Hypertension, Kidney Stone (CLARISSA OLMEDO APRN) Past Surgical History: Other Additional Past Surgical Histo: R LEG I & D/drain (CLARISSA OLMEDO APRN) Alcohol Use: None Drug Use: None (CLARISSA OLMEDO APRN) Attending Signature I have participated in the care of this patient and I have reviewed and agree with all pertinent clinical information above including history, exam, and recommendations. (CIERRA CARTER MD) Adult General Chief Complaint Chief Complaint: EYE PROBLEMS HPI HPI Patient is a 83 year old male who presents stating that he saw liquid quivering inside his right eye earlier this evening. He states resolved for come to the ER. He states he does have bilateral retinal tear in his medical history and so he wanted to present to the ER to get checked out. He denies any halos, fogginess, floaters in his eye. Denies any pain to the eye. (CLARISSA OLMEDO APRN) Review of Systems Review of Systems Constitutional: Denies fever or chills [] Eyes: Denies change in visual acuity, redness, or eye pain. Reports he "saw liquid in his eye". HENT: Denies nasal congestion or sore throat [] Respiratory: Denies cough or shortness of breath [] Cardiovascular: No additional information not addressed in HPI [] GI: Denies abdominal pain, nausea, vomiting, bloody stools or diarrhea [] : Denies dysuria or hematuria [] Musculoskeletal: Denies back pain or joint pain [] Integument: Denies rash or skin lesions [] Neurologic: Denies headache, focal weakness or sensory changes [] Endocrine: Denies polyuria or polydipsia [] Complete systems were reviewed and found to be within normal limits, except as documented in this note. (CLARISSA OLMEDO APRN) Current Medications Current Medications Current Medications Medications (Trade) Dose Ordered Sig/Malaika Start Time Stop Time Status Last Admin Dose Admin Fluorescein Sodium (Ful-Chantell) 1 strip 1X STAT 05/31/19 20:41 05/31/19 20:46 DC 05/31/19 20:55 1 STRIP Tetracaine HCl (Tetracaine) 1 drop 1X STAT 05/31/19 20:41 05/31/19 20:46 DC 05/31/19 20:55 1 DROP (CIERRA CARTER MD) Allergies Allergies Allergies Coded Allergies Type Severity Reaction Last Updated Verified No Known Drug Allergies 06/28/17 No (CIERRA CARTER MD) Physical Exam Physical Exam Constitutional: Well developed, well nourished, no acute distress, non-toxic appearance. [] HENT: Normocephalic, atraumatic, bilateral external ears normal, oropharynx moist, no oral exudates, nose normal. [] Eyes: PERRLA, EOMI, conjunctiva normal, no discharge. [] Neck: Normal range of motion, no tenderness, supple, no stridor. [] Cardiovascular:Heart rate regular rhythm, no murmur [] Lungs & Thorax: Bilateral breath sounds clear to auscultation [] Abdomen: Bowel sounds normal, soft, no tenderness, no masses, no pulsatile masses. [] Skin: Warm, dry, no erythema, no rash. [] Back: No tenderness, no CVA tenderness. [] Extremities: No tenderness, no cyanosis, no clubbing, ROM intact, no edema. [] Neurologic: Alert and oriented X 3, normal motor function, normal sensory function, no focal deficits noted. [] Psychologic: Affect normal, judgement normal, mood normal. [] Eye: Performed eye exam with wood's lamp, no corneal abrasion or Shannan's sign noted. Look at R eye with ultrasound (Dr. Carter at bedside) no retinal detachment noted. (CLARISSA OLMEDO APRN) Current Patient Data Vital Signs Vital Signs Date Time Temp Pulse Resp B/P (MAP) Pulse Ox O2 Delivery O2 Flow Rate FiO2 05/31/19 19:55 97.7 68 18 130/74 (92) 97 Room Air 97.7 (CIERRA CARTER MD) EKG EKG [] (CLARISSA OLMEDO APRN) Radiology/Procedures Radiology/Procedures [] (CLARISSA OLMEDO APRN) Course & Med Decision Making Course & Med Decision Making Pertinent Labs and Imaging studies reviewed. (See chart for details) Will order tetracaine and fluorescein and perform wood's lamp evaluation. The patient visual acuities: 20/40 (R), and 20/200 (L). The patient states that his left eye is his bad eye and this is normal vision for him. (CLARISSA OLMEDO APRN) Dragon Disclaimer Dragon Disclaimer This electronic medical record was generated, in whole or in part, using a voice recognition dictation system. (CLARISSA OLMEDO APRN) Departure Departure Impression: Primary Impression: Eye anomaly Disposition: 01 HOME, SELF-CARE Condition: STABLE Referrals: BETHANY WALL (PCP) Additional Instructions: Thank you for visiting [facility]. We appreciate you trusting us with your care. If any additional problems come up don't hesitate to return to visit us. Please follow up with your primary care provider so they can plan additional care if needed and know about the problem that you had. If symptoms worsen come back to the Emergency Department. Any concerning symptoms that start such as chest pain, shortness of air, weakness or numbness on one side of the body, running high fevers or any other concerning symptoms return to the ER. Please follow up with your eye doctor tomorrow for further workup. CLARISSA OLMEDO APRN May 31, 2019 21:05 CIERRA CARTER MD Jun 01, 2019 02:16
== END 2019-05-31 21:39 | disposition home or self-care (01) ==
LOC: ER 19:48
DX: Q15.9 Congenital malformation of eye, unspecified (principal); I48.91 Unspecified atrial fibrillation; E78.00 Pure hypercholesterolemia, unspecified; I10 Essential (primary) hypertension
CPT/HCPCS: 99284

== ENCOUNTER → 2019-09-07 | Outpatient (CLI) | payer BC, MEDICARE ==
[2019-05-31 19:55] VITALS: BP 130/74
[~2019-09-07] MED LIST changes: +GADOTERATE 5 MMOL/10ML VIAL. IVP ONE
--- NOTE | 2019-09-07 15:38 | KCIC ---
MRI Brain with and without contrast History: Idiopathic gynecomastia Technique: Multiplanar, multi sequential pre and postcontrast MR imaging was performed of the brain, also dedicated images obtained of the pituitary gland. Comparison: None Findings: There is no evidence of recent infarct or cytotoxic edema. Ventricular size is is within normal limits. There is mild generalized supratentorial involutional change not unexpected for patient's age.There is no significant midline shift, intraaxial mass effect, or focal abnormal extra-axial fluid collection. There is mild T2 and FLAIR hyperintense signal abnormality of the supratentorial parenchyma bilaterally. There is no nodular parenchymal or leptomeningeal enhancement. There is preservation of the major intracranial flow-voids at the skull base. The cerebellar tonsils are normal in location. There is no significant abnormality of the pineal gland. There has been lens surgery bilaterally. There is mild bilateral ethmoid air cell mucosal thickening. There is mild thickening of the bilateral mastoid air cells. There is very mild thickening and patchy fluid of the mastoid air cells bilaterally. There is nonspecific mild heterogeneity of the marrow of the nonexpanded clivus. Dedicated pituitary images are degraded by motion. Pituitary gland is not enlarged. Infundibulum is near the midline. As seen on postcontrast dynamic image 6 series 15, there is a small focus of decreased enhancement of the left pituitary gland to 3 mm transverse by 2 mm CC, poorly distinguished on sagittal images. As seen on the same image, there is also small focus of decreased enhancement of the right aspect of the pituitary gland about 2 to 3 mm in size. This is also not well-visualized on other images. Both foci are also not well seen on more delayed dynamic images. Impression: 1. There are small foci of decreased enhancement of the bilateral pituitary gland as stated although seen on the same image and not well-visualized on other images, either which could be a small microadenoma in the appropriate clinical setting. Characterization is somewhat limited due to motion degradation for dedicated pituitary images. 2. There is mild T2 and FLAIR hyperintense signal abnormality of the supratentorial parenchyma bilaterally, nonspecific findings more commonly due to chronic microvascular ischemic disease in a patient this age. Electronically signed by: Herve Chang MD (09/07/2019 3:35 PM) [id number]
== END | disposition home or self-care (01) ==
LOC: KCIC MRI 13:08
PROVIDERS: ATTEND Family Medicine
DX: N62 Hypertrophy of breast (principal)
CPT/HCPCS: 70553; 82565; A9575

== ENCOUNTER → 2020-04-11 | Outpatient (CLI) | payer MEDICARE ==
[2019-05-31 19:55] VITALS: BP 130/74
[~2020-04-11] MED LIST changes: -GADOTERATE 5 MMOL/10ML VIAL. IVP ONE
--- NOTE | 2020-04-11 12:38 | CARD ---
MR#: [id number] Date of Study: 04/11/2020 Ordering Physician: DAQUAN FOSTER, Referring Physician: DAQUAN FOSTER, Tech: Lynda Spence APPROVED REPORT EXAM: Two-dimensional and M-mode echocardiogram with Doppler and color Doppler. Other Information Quality : AverageHR: 74bpm INDICATION Atrial Fibrillation RISK FACTORS Hyperlipidemia 2D DIMENSIONS RVDd4.2 (2.9-3.5cm)Left Atrium(2D)3.5 (1.6-4.0cm) IVSd1.4 (0.7-1.1cm)Aortic Root(2D)3.3 (2.0-3.7cm) LVDd5.6 (3.9-5.9cm)LVOT Diameter2.1 (1.8-2.4cm) PWd1.0 (0.7-1.1cm)LVDs4.1 (2.5-4.0cm) FS (%) 26.5 %SV77.4 ml LVEF(%)51.2 (>50%) Aortic Valve AoV Peak Antonio.147.1cm/sAoV VTI29.2cm AO Peak GR.8.7mmHgLVOT Peak Antonio.88.5cm/s LVOT VTI 20.23cmAO Mean GR.5mmHg VIN (VMAX)1.59bg6HMB (VTI)2.44cm2 AI P 1/2 Aial288sk Mitral Valve MV E Efeyprgo92.1cm/sMV E Peak Gr.62mmHg MV DECEL UIDE197ysZV A Tnlcxszb71.3cm/s MV HPN08oiB/A Ratio3.2 MVA (PHT)3.54cm2 TDI E/Lateral E'6.6E/Medial E'8.7 Pulmonary Valve PV Peak Qyehpfrn199.3cm/sPV Peak Grad.5mmHg Tricuspid Valve TR P. Gdydkhyb883to/sRAP CKSRYCNT2iuQj TR Peak Gr.59hiCpWQWV83uqSo LEFT VENTRICLE The left ventricle is normal size. There is mild to moderate concentric left ventricular hypertrophy. The left ventricular systolic function is normal. The ejection fraction is 55 to 60%. There is michelle l LV segmental wall motion. RIGHT VENTRICLE The right ventricle is normal size. There is normal right ventricular wall thickness. The right ventr icular systolic function is normal. ATRIA The left atrium is moderately dilated. The right atrium is moderately dilated. The interatrial septum is intact with no evidence for an atrial septal defect or patent foramen ovale as noted on 2-D or Do ppler imaging. AORTIC VALVE The aortic valve is thickened but opens well. Doppler and Color Flow revealed trace aortic regurgitat ion. There is no significant aortic valvular stenosis. Calculated aortic valve area is 2.64 cm2 with maximum pressure gradient of 12 mmHg and mean pressure gradient of 6 mmHg. MITRAL VALVE The mitral valve is normal in structure and function. There is no evidence of mitral valve prolapse. There is no mitral valve stenosis. Doppler and Color-flow revealed trace mitral regurgitation. TRICUSPID VALVE The tricuspid valve is normal in structure and function. Doppler and Color Flow revealed mild tricusp id regurgitation with an estimated PAP of 30 mmHg. There is no tricuspid valve stenosis. PULMONIC VALVE The pulmonic valve is not well visualized. Doppler and Color Flow revealed trace pulmonic valvular re gurgitation. GREAT VESSELS The aortic root is normal in size. The ascending aorta is Mildly dilated. The IVC is normal in size a nd collapses >50% with inspiration. PERICARDIAL EFFUSION There is no evidence of significant pericardial effusion. Critical Notification Critical Value: No <Conclusion> The left ventricular systolic function is normal. The ejection fraction is 55 to 60%. There is normal LV segmental wall motion. The left atrium is moderately dilated. Trace mitral regurgitation. Mild tricuspid regurgitation with an estimated PAP of 30 mmHg. There is no evidence of significant pericardial effusion. Signed by : Daquan Foster, Electronically Approved : 04/11/2020 12:38:32
== END ==
LOC: ECHO 07:43
PROVIDERS: ATTEND Internal Medicine Cardiovascular Disease
DX: I07.1 Rheumatic tricuspid insufficiency (principal); I48.91 Unspecified atrial fibrillation
CPT/HCPCS: 93306

== ENCOUNTER 2021-03-05 15:49 | Emergency (ER) | payer MEDICARE ==
[~2021-03-05] VITALS: Ht 167.6 cm; Wt 86.6 kg
[~2021-03-05 15:49] MED LIST changes: -CLIN150C14 PO; +CLIN150C16 PO
--- NOTE | 2021-03-05 17:17 | PHYS DOC ---
Past Medical History Past Medical History: A-Fib, High Cholesterol, Hypertension, Kidney Stone Past Surgical History: Other Additional Past Surgical Histo: R LEG I & D/drain Smoking Status: Former Smoker Alcohol Use: None Drug Use: None General Adult EDM: Chief Complaint: URINARY RETENTION HPI: HPI: Patient is a 85 year old male presents to the emergency department chief complaint of difficulty urination past 2 days. Patient reports having sinus surgery last , denies problems with bowel elimination or urinary problems however reports 2 nights ago feeling his bladder was full, states in the testing and regulating chief he was able to squeeze out 1 drop of urine, has not urinated all day until seeking care here in the emergency department today. Patient denies abdominal pain, nausea, vomiting, or diarrhea or constipation. States he does feel pressure at his lower abdomen. Patient denies chest pains, chest congestion, nasal congestion, recent fever or chills. Denies any other physical complaints or physical concerns. Patient reports he takes warfarin and metoprolol for atrial fibrillation, lovastatin for cholesterol problems. Denies allergies to medications. Review of Systems: Review of Systems: 14 body systems of review of systems have been reviewed. See HPI for pertinent positives and negative responses, otherwise all other systems are negative, nonpertinent or noncontributory. Constitutional: Negative except as outlined in HPI above. Skin: Negative except as outlined in HPI above. Eyes: Negative except as outlined in HPI above. HENT: Negative except as outlined in HPI above. Respiratory: Negative except as outlined in HPI above. Cardiovascular: Negative except as outlined in HPI above. GI: Negative except as outlined in HPI above. : Negative except as outlined in HPI above. Musculoskeletal: Negative except as outlined in HPI above. Integument: Negative except as outlined in HPI above. Neurologic: Negative except as outlined in HPI above. Endocrine: Negative except as outlined in HPI above. Lymphatic: Negative except as outlined in HPI above. Psychiatric: Negative except as outlined in HPI above. Heart Score: C/O Chest Pain: No Risk Factors: Risk Factors: DM, Current or recent (<one month) smoker, HTN, HLP, family history of CAD, obesity. Risk Scores: Score 0 - 3: 2.5% MACE over next 6 weeks - Discharge Home Score 4 - 6: 20.3% MACE over next 6 weeks - Admit for Clinical Observation Score 7 - 10: 72.7% MACE over next 6 weeks - Early Invasive Strategies Allergies: Allergies: Allergies Coded Allergies Type Severity Reaction Last Updated Verified No Known Drug Allergies 06/28/17 No Physical Exam: PE: Constitutional: Well developed, well nourished, no acute distress, non-toxic appearance. 85-year-old male in no apparent distress. HENT: Normocephalic, atraumatic. Eyes: Conjunctiva normal, no discharge. Neck: Normal range of motion, no stridor. Cardiovascular: No cyanosis appreciated, distal cap refill less than 2 seconds. Lungs & Thorax: Patient is in no respiratory distress, no audible adventitious lung sounds appreciated. Abdomen: Nontender, no abnormalities noted. Mild discomfort with palpation over bladder, no masses appreciated. Skin: Warm, dry, no erythema, no rash. Back: No tenderness, no deformities. Extremities: No tenderness, no cyanosis, no clubbing, ROM intact, no edema. Neurologic: Alert and oriented X 3, normal motor function, normal sensory function, no focal deficits noted. Psychologic: Affect normal, judgement normal, mood normal. Current Patient Data: Labs: Laboratory Tests Test 03/05/21 17:50 03/05/21 18:45 Urine Collection Type Unknown Urine Color Yellow Urine Clarity Clear Urine pH 7.0 Urine Specific [place] 1.015 Urine Protein Negative mg/dL Urine Glucose (UA) Negative mg/dL Urine Ketones (Stick) Negative mg/dL Urine Blood Small Urine Nitrite Negative Urine Bilirubin Negative Urine Urobilinogen Dipstick 1.0 mg/dL Urine Leukocyte Esterase Negative Urine RBC 1-2 /HPF Urine WBC Occ /HPF Urine Bacteria 0 /HPF White Blood Count 9.3 x10^3/uL Red Blood Count 4.27 x10^6/uL Hemoglobin 13.8 g/dL Hematocrit 39.7 % Mean Corpuscular Volume 93 fL Mean Corpuscular Hemoglobin 32 pg Mean Corpuscular Hemoglobin Concent 35 g/dL Red Cell Distribution Width 13.3 % Platelet Count 169 x10^3/uL Neutrophils (%) (Auto) 79 % Lymphocytes (%) (Auto) 10 % Monocytes (%) (Auto) 10 % Eosinophils (%) (Auto) 0 % Basophils (%) (Auto) 0 % Neutrophils # (Auto) 7.3 x10^3/uL Lymphocytes # (Auto) 0.9 x10^3/uL Monocytes # (Auto) 1.0 x10^3/uL Eosinophils # (Auto) 0.0 x10^3/uL Basophils # (Auto) 0.0 x10^3/uL Sodium Level 136 mmol/L Potassium Level 4.3 mmol/L Chloride Level 103 mmol/L Carbon Dioxide Level 29 mmol/L Anion Gap 4 Blood Urea Nitrogen 14 mg/dL Creatinine 1.1 mg/dL Estimated GFR (Cockcroft-Gault) 63.5 Glucose Level 103 mg/dL Calcium Level 8.3 mg/dL EKG: EKG: [] Radiology/Procedures: Radiology/Procedures: [] Course & Med Decision Making: Course & Med Decision Making Pertinent Labs and Imaging studies reviewed. (See chart for details) 85-year-old male, vital signs reviewed, presents to the emergency department concerning urinary retention problems at home. Patient does not have a history of urinary problems or prostate problems, patient reported his PSA test last year was normal. An order for bladder scan was placed, ED nurse instead placed Tilley to dependent drainage. 700 cc of urine returned. Urinalysis assay, CBC, CMP ordered. Patient does state relief in bladder pressure and sensations since Tilley catheter has been placed. Patient CBC, CMP, urinalysis assay unremarkable and nonconcerning, however there was slight hematuria in urine most likely related to Tilley placement. No gross or evaristo blood in urine. The patient's urine is not infected. Discussed findings with patient, discussed sending home with Tilley in place with leg bag attachment, strict follow-up with urology tomorrow, patient reports he knows a urologist and will make appointment tomorrow. Patient was given instructions for leg bag Tilley use at home. Patient is amenable with ED discharge planning. Discussed with the patient all findings and diagnostic testing as well as the need to follow-up with their primary care provider for further evaluation and treatment or return to the ED if any new or worsening symptoms. Strict return precautions were also discussed at length, the patient voiced understanding and agreement with the discharge planning. The patient was nontoxic in appearance, in no apparent distress, and hemodynamically stable at the time of disposition. Dragon Disclaimer: Dragon Disclaimer: This electronic medical record was generated, in whole or in part, using a voice recognition dictation system. Departure Departure Impression: Primary Impression: Urinary retention Additional Impression: Tilley catheter in place Disposition: HOME / SELF CARE / HOMELESS Condition: GOOD Referrals: LEONILA BARBA (PCP) Patient Instructions: Urinary Retention, Acute, Male Additional Instructions: You were seen today in the emergency department for urinary retention problems. A Tilley catheter was placed to dependent drainage. This will allow your urine to drain without difficulty. A leg bag was attached so that you may use this fully with less difficulty. Please leave in place until seen by urology specialist. Please follow-up with the urology specialist tomorrow. You may consider using case see you see urology and oncology care, [facility] in [facility] on [address] [place], [address], area code [phone]. You may use any urology specialist of your choice. Please follow-up with your primary care doctor tomorrow if you are unable to secure an appointment with a urologist. Please return to the emergency department for worsening symptoms or other concerns. Thank you for visiting our Emergency Department. It was a pleasure taking care of you today in the emergency department and we appreciate you trusting us with your care. If any additional problems come up don't hesitate to return to visit us. Please follow up with your primary care provider so they can plan additional care if needed and know about the problem that you had. If symptoms worsen come back to the Emergency Department. Any concerning symptoms that start such as chest pain, shortness of air, weakness or numbness on one side of the body, running high fevers or any other concerning symptoms return to the ER. CLARISSA DE LEON APRN Mar 05, 2021 17:17
[2021-03-05 17:58] LABS: BILIRUBIN,URINE NEGATIVE (NEG); CLARITY,URINE CLEAR; COLOR,URINE YELLOW; NITRITE,URINE NEGATIVE (NEG); PROTEIN,URINE NEGATIVE (NEG-TRACE)
[2021-03-05 18:11] LABS: BACTERIA,URINE 0 /HPF (0-FEW); WBC,URINE OCC /HPF (0-4)
[2021-03-05 18:30] VITALS: BP 106/56
[2021-03-05 18:55] LABS: BASO % 0 % (0-3); EOS % 0 % (0-3); HEMATOCRIT 39.7 % (39.0-53.0); HEMOGLOBIN 13.8 g/dL (13.0-17.5); LYMPH # 0.9 x10^3/uL (1.0-4.8); LYMPH % 10 % (24-48); MEAN CORPUSCULAR HEMOGLOBIN 32 pg (25-35); MEAN CORPUSCULAR HGB CONC 35 g/dL (31-37); MEAN CORPUSCULAR VOLUME 93 fL (79-100); MONO % 10 % (0-9); NEUT # 7.3 x10^3/uL (1.8-7.7); NEUT % 79 % (31-73); PLATELET COUNT 169 x10^3/uL (140-400); RED BLOOD COUNT 4.27 x10^6/uL (4.30-5.70); RED CELL DISTRIBUTION WIDTH 13.3 % (11.5-14.5); WHITE BLOOD COUNT 9.3 x10^3/uL (4.0-11.0)
[2021-03-05 19:01] LABS: CALCIUM 8.3 mg/dL (8.5-10.1); CREATININE 1.1 mg/dL (0.7-1.3); GFR 63.5; POTASSIUM 4.3 mmol/L (3.5-5.1)
== END 2021-03-05 20:00 | disposition home or self-care (01) ==
LOC: ER 15:49
DX: R33.9 Retention of urine, unspecified (principal); E78.00 Pure hypercholesterolemia, unspecified; I10 Essential (primary) hypertension; I48.91 Unspecified atrial fibrillation; Z87.891 Personal history of nicotine dependence
CPT/HCPCS: 36415; 51702; 80048; 81001; 85025; 99284

== ENCOUNTER 2021-03-06 12:19 | Emergency (ER) | payer MEDICARE ==
[~2021-03-06] VITALS: Ht 172.7 cm; Wt 87.1 kg
[2021-03-06 14:29] LABS: BILIRUBIN,URINE NEGATIVE (NEG); CLARITY,URINE CLEAR; COLOR,URINE YELLOW; NITRITE,URINE NEGATIVE (NEG); PROTEIN,URINE NEGATIVE (NEG-TRACE)
[2021-03-06 14:44] LABS: HYALINE CASTS, URINE FEW /HPF; RBC,URINE >40 /HPF (0-2)
[2021-03-06 14:45] LABS: BACTERIA,URINE 0 /HPF (0-FEW)
[2021-03-06 15:24] VITALS: BP 116/60
--- NOTE | 2021-03-06 15:27 | PHYS DOC ---
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 Patient states he had a Tilley catheter placed yesterday for urinary retention. He states last night he noted the Tilley was kinked, he states he unkinked and cut the tubing shorter and would like to have it revaluated. He states he also attached leg bag and is currently draining. (JUAN A SHIRLEY REFRIGERATOR [employer] ICER) Review of Systems: Review of Systems: Constitutional: Denies fever or chills. [] GI: Denies abdominal pain, nausea, vomiting, bloody stools or diarrhea. [] : Presents for evaluation of Tilley catheter denies dysuria. [] Musculoskeletal: Denies back pain or joint pain. [] Integument: Denies rash. [] Neurologic: Denies headache, focal weakness or sensory changes. [] Psychiatric: Denies depression or anxiety. [] (JUAN A SHIRLEY REFRIGERATOR [employer] ICER) Heart Score: C/O Chest Pain: N/A Risk Factors: Risk Factors: DM, Current or recent (<one month) smoker, HTN, HLP, family history of CAD, obesity. Risk Scores: Score 0 - 3: 2.5% MACE over next 6 weeks - Discharge Home Score 4 - 6: 20.3% MACE over next 6 weeks - Admit for Clinical Observation Score 7 - 10: 72.7% MACE over next 6 weeks - Early Invasive Strategies (JUAN A SHIRLEY REFRIGERATOR [employer] ICER) Allergies: Allergies: Allergies Coded Allergies Type Severity Reaction Last Updated Verified No Known Drug Allergies 03/06/21 No (JUAN A SHIRLEY REFRIGERATOR [employer] ICER) Physical Exam: PE: Constitutional: Well developed, well nourished, no acute distress, non-toxic appearance. [] Abdomen: Bowel sounds normal, soft, no tenderness, no masses, no pulsatile masses. [] Uncircumcised male penis. Tilley catheter in place attached to a leg bag. Tilley catheter draining with no issues. No pelvic pressure or pain. Skin: Warm, dry, no erythema, no rash. [] Back: No tenderness, no CVA tenderness. [] Extremities: No tenderness, no cyanosis, no clubbing, ROM intact, no edema. [] Neurologic: Alert and oriented X 3, normal motor function, normal sensory function, no focal deficits noted. [] Psychologic: Affect normal, judgement normal, mood normal. [] (JUAN A SHIRLEY APRN) Current Patient Data: Labs: Laboratory Tests Test 03/06/21 14:15 Urine Collection Type Unknown Urine Color Yellow Urine Clarity Clear Urine pH 6.0 (<5.0-8.0) Urine Specific [place] 1.020 (1.000-1.030) Urine Protein Negative mg/dL (NEG-TRACE) Urine Glucose (UA) Negative mg/dL (NEG) Urine Ketones (Stick) Negative mg/dL (NEG) Urine Blood Large (NEG) Urine Nitrite Negative (NEG) Urine Bilirubin Negative (NEG) Urine Urobilinogen Dipstick 1.0 mg/dL (0.2 mg/dL) Urine Leukocyte Esterase Negative (NEG) Urine RBC >40 /HPF (0-2) Urine WBC 1-4 /HPF (0-4) Urine Bacteria 0 /HPF (0-FEW) Urine Hyaline Casts Few /HPF Urine Mucus Marked /LPF Vital Signs: Vital Signs Date Time Temp Pulse Resp B/P (MAP) Pulse Ox O2 Delivery O2 Flow Rate FiO2 03/06/21 12:25 98.2 76 16 135/68 (73) 97 Room Air 98.2 (JUAN A SHIRLEY APRN) EKG: EKG: [] (JUAN A SHIRLEY APRN) Radiology/Procedures: Radiology/Procedures: [] (JUAN A SHIRLEY APRN) Course & Med Decision Making: Course & Med Decision Making Pertinent Labs and Imaging studies reviewed. (See chart for details) This is a 85-year-old male patient presenting to the ED today for Tilley catheter diarrhea evaluation. He had the Tilley catheter placed last night for urinary retention and he went home and he became kinked. Patient arrives in the ED with a Tilley catheter attached to a leg bag that is draining adequately. UA negative for infection. Bladder volume index was done in the ED which was 0. Patient was discharged to home with instructions on how to use the leg bag and the night bag. (JUAN A SHIRLEY APRN) Course & Med Decision Making I have reviewed and was available for consultation in the emergency department for this patient that was seen by midlevel provider. Agree with plan Amadou Meza DO (AMADOU MEZA DO) Dragon Disclaimer: Dragon Disclaimer: This electronic medical record was generated, in whole or in part, using a voice recognition dictation system. (JUAN A SHIRLEY APRN) Departure Departure Impression: Primary Impression: Tilley catheter in place Disposition: HOME / SELF CARE / HOMELESS Condition: STABLE Referrals: LEONILA BARBA (PCP) Patient Instructions: Tilley Catheter Care, Adult Additional Instructions: You were evaluated in the emergency room, a Tilley catheter is draining. The leg bag is use when people are up and going places. The night bag is usually used when people sleeping or not planning on leaving the house during the day. The night bag reduces chances of kinking and can hold more urine. Please follow-up with the urologist at [facility] as soon as possible [facility] urology Located in: [facility] Address: [address] [place] [address] JUAN A SHIRLEY APRN Mar 06, 2021 15:27 AMADOU MEZA DO Mar 06, 2021 15:33
== END 2021-03-06 15:30 | disposition home or self-care (01) ==
LOC: ER 12:19
DX: Z46.6 Encounter for fitting and adjustment of urinary device (principal); I48.91 Unspecified atrial fibrillation; E78.00 Pure hypercholesterolemia, unspecified; I10 Essential (primary) hypertension
CPT/HCPCS: 81001; 99285; A4314

== ENCOUNTER → 2021-04-17 | Outpatient (CLI) | payer MEDICARE ==
--- NOTE | 2021-04-17 16:37 | CARD ---
MR#: [id number] Date of Study: 04/17/2021 Ordering Physician: DAQUAN FOSTER, Referring Physician: DAQUAN FOSTER, Tech: Lynda Spence, [facility] APPROVED REPORT EXAM: Two-dimensional and M-mode echocardiogram with Doppler and color Doppler. Other Information Quality : AverageHR: 72bpm INDICATION Atrial Fibrillation 2D DIMENSIONS RVDd5.4 (2.9-3.5cm)Left Atrium(2D)3.7 (1.6-4.0cm) IVSd1.3 (0.7-1.1cm)Aortic Root(2D)3.5 (2.0-3.7cm) LVDd5.1 (3.9-5.9cm)LVOT Diameter2.3 (1.8-2.4cm) PWd1.1 (0.7-1.1cm)LVDs3.8 (2.5-4.0cm) FS (%) 26.5 %SV64.4 ml LVEF(%)51.6 (>50%) Aortic Valve AoV Peak Antonio.154.0cm/sAoV VTI30.3cm AO Peak GR.9.5mmHgLVOT Peak Antonio.82.6cm/s LVOT VTI 17.46cmAO Mean GR.5mmHg VIN (VMAX)1.53fd2TXC (VTI)2.42cm2 AI P 1/2 [id number] Mitral Valve MV E Kcehnhaa12.6cm/sMV DECEL [id number] MV E Mean Gr.1mmHgMV [id number] MVA (PHT)4.05cm2 TDI E/Lateral E'5.9E/Medial E'7.7 Pulmonary Valve PV Peak Itvlwuxz71.9cm/sPV Peak Grad.3mmHg Tricuspid Valve TR P. [id number] [id number] TR Peak Gr.[id number] LEFT VENTRICLE The left ventricle is normal size. There is mild concentric left ventricular hypertrophy. The left ve ntricular systolic function is normal. The Ejection Fraction is 55%. There is normal LV segmental wal l motion. Diastology indeterminate due to atrial fibriallation. RIGHT VENTRICLE The right ventricle is normal size. There is normal right ventricular wall thickness. The right ventr icular systolic function is normal. ATRIA The left atrium is moderately dilated. The right atrium is moderately dilated. The interatrial septum is intact with no evidence for an atrial septal defect or patent foramen ovale as noted on 2-D or Do ppler imaging. AORTIC VALVE The aortic valve is normal in structure and function. Doppler and Color Flow revealed mild aortic reg urgitation. There is no significant aortic valvular stenosis. Calculated aortic valve area is 1.76 cm 2 with maximum pressure gradient of 12 mmHg and mean pressure gradient of 7 mmHg. MITRAL VALVE The mitral valve is normal in structure and function. There is no evidence of mitral valve prolapse. There is no mitral valve stenosis. Doppler and Color-flow revealed trace mitral regurgitation. TRICUSPID VALVE The tricuspid valve is normal in structure and function. Doppler and Color Flow revealed trace to mil d tricuspid regurgitation with an estimated PAP of 29 mmHg. There is no tricuspid valve stenosis. PULMONIC VALVE The pulmonic valve is not well visualized. Doppler and Color Flow revealed trace pulmonic valvular re gurgitation. GREAT VESSELS The aortic root is normal in size. 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 The IVC is michelle l in size and collapses >50% with inspiration. PERICARDIAL EFFUSION There is no evidence of significant pericardial effusion. Critical Notification Critical Value: No <Conclusion> The left ventricular systolic function is normal. The Ejection Fraction is 55%. There is normal LV segmental wall motion. Mild aortic regurgitation. Trace mitral regurgitation. Trace to mild tricuspid regurgitation with an estimated PAP of 29 mmHg. 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 There is no evidence of significant pericardial effusion. Signed by : Daquan Foster, Electronically Approved : 04/17/2021 16:36:23
== END ==
LOC: ECHO 08:11
PROVIDERS: ATTEND Internal Medicine Cardiovascular Disease
DX: I08.2 Rheumatic disorders of both aortic and tricuspid valves (principal); I48.21 Permanent atrial fibrillation
CPT/HCPCS: 93306